=== PATIENT | male | born 1940 | race Caucasian/White ===

== ENCOUNTER 2019-10-03 09:52 | Outpatient (CLI) | payer MEDICARE, SELFPAY ==
[2019-10-03 10:28] LABS: Basophils Percent Auto 0.6 % (0.2-1.2); Eosinophils Absolute Auto 0.1 K/mm3 (0-0.3); Eosinophils Percent Auto 1.8 % (0-4.4); Hematocrit 40.1 % (42.0-52.0); Hemoglobin 13.6 g/dL (14.0-18.0); Immature Granulocyte Absolute 0.02 K/mm3 (0.00-0.031); Immature Granulocyte Percent A 0.3 % (0-0.5); Lymphocytes Absolute Auto 1.61 K/mm3 (0.9-3.2); Lymphocytes Percent Auto 26.1 % (18.3-44.2); Mean Corpuscular HGB Conc 33.9 g/dl (32-36); Mean Corpuscular Hemoglobin 31.3 pg (26-34); Mean Corpuscular Volume 92.2 fl (80-100); Mean Platelet Volume 8.8 fl (7.4-10.4); Monocytes Absolute Auto 0.6 K/mm3 (0.1-0.6); Monocytes Percent Auto 10.1 % (2.6-8.5); Neutrophils Absolute Auto 3.8 K/mm3 (1.3-6.7); Neutrophils Percent Auto 61.1 % (45.5-73.1); Platelet Count Result 248 k/mm3 (150-375); Red Blood Count 4.35 M/mm3 (4.6-6.20); Red Cell Distribution Width 13.2 % (11.5-14.5); White Blood Count 6.2 K/mm3 (4.5-10.0)
[2019-10-03 10:35] LABS: Hemoglobin A1C 5.7 % (<5.7)
[2019-10-03 10:42] LABS: Alanine Aminotransferase 20 U/L (4-50); Albumin Level 4.4 g/dL (3.5-5.1); Alkaline Phosphatase 68 U/L (38-126); Aspartate Amino Transferase 27 U/L (17-59); Bilirubin,Total 0.9 mg/dL (0.2-1.3); Blood Urea Nitrogen 14 mg/dL (9-20); Calcium 9.3 mg/dL (8.4-10.2); Carbon Dioxide 31 mmol/L (22-30); Chloride 100 mmol/L (98-107); Cholesterol 136 mg/dL (0-200); Estimated Glomerular Filt Rate > 60; Glucose 99 mg/dL (75-110); HDL Direct 49 mg/dL; Potassium 4.4 mmol/L (3.4-5.0); Sodium 136 mmol/L (137-145); Triglycerides 47 mg/dL (<150)
[2019-10-03 10:53] LABS: LDL Cholesterol Direct 62 mg/dL
[2019-10-08 09:44] LABS: Homocysteine 12.6 umol/L (<11.4)
== END 2019-10-03 09:53 | disposition home or self-care (01) ==
PROVIDERS: PCP Internal Medicine; Visit Provider Internal Medicine
DX: E11.9 Type 2 diabetes mellitus without complications (principal); I10 Essential (primary) hypertension; E78.2 Mixed hyperlipidemia; R79.89 Other specified abnormal findings of blood chemistry
CPT/HCPCS: 36415; 80048; 80061; 80076; 83036; 83090; 85025

== ENCOUNTER 2019-10-18 11:04 | Outpatient (CLI) | payer MEDICARE, SELFPAY ==
--- NOTE | ~2019-10-18 | XR_ITS ---
XR sinus min 3V DATE: 10/18/2019 11:32 INDICATION: Paranasal sinus disorder TECHNIQUE: 5 views COMPARISON: None FINDINGS: The nasal turbinates appear relatively prominent in size, especially on the right. Leftward bowing of the upper nasal septum. There is cloudiness of the right maxillary sinus with evidence of mild to moderate mucoperiosteal thi ckening. Left maxillary sinus, ethmoid air cells, frontal and sphenoid sinuses appear normally develo ped and aerated. The left mastoid air cells appear well-developed and aerated. There is lesser development of the righ t mastoid air cells. IMPRESSION: Right maxillary mucoperiosteal thickening, cloudiness Reviewed, dictated and finalized at location A.
== END 2019-10-18 11:05 | disposition home or self-care (01) ==
LOC: ANHIMG 11:13
PROVIDERS: PCP Internal Medicine; Visit Provider Internal Medicine
DX: J34.9 Unspecified disorder of nose and nasal sinuses (principal)
CPT/HCPCS: 70220

== ENCOUNTER 2019-11-26 11:52 | Outpatient (CLI) | payer MEDICARE, SELFPAY ==
[2019-11-26 12:25] LABS: Basophils Percent Auto 0.6 % (0.2-1.2); Eosinophils Absolute Auto 0.1 K/mm3 (0-0.3); Eosinophils Percent Auto 2.1 % (0-4.4); Hemoglobin 12.5 g/dL (14.0-18.0); Immature Granulocyte Absolute 0.01 K/mm3 (0.00-0.031); Immature Granulocyte Percent A 0.2 % (0-0.5); Lymphocytes Absolute Auto 1.38 K/mm3 (0.9-3.2); Lymphocytes Percent Auto 21.8 % (18.3-44.2); Mean Corpuscular HGB Conc 33.8 g/dl (32-36); Mean Corpuscular Hemoglobin 31.4 pg (26-34); Mean Platelet Volume 8.9 fl (7.4-10.4); Monocytes Absolute Auto 1.4 K/mm3 (0.1-0.6); Monocytes Percent Auto 22.8 % (2.6-8.5); Neutrophils Absolute Auto 3.3 K/mm3 (1.3-6.7); Neutrophils Percent Auto 52.5 % (45.5-73.1); Platelet Count Result 207 k/mm3 (150-375); Red Blood Count 3.98 M/mm3 (4.6-6.20); Red Cell Distribution Width 13.4 % (11.5-14.5); White Blood Count 6.3 K/mm3 (4.5-10.0)
[2019-11-26 12:39] LABS: Blood Urea Nitrogen 6 mg/dL (9-20); Carbon Dioxide 27 mmol/L (22-30); Chloride 97 mmol/L (98-107); Estimated Glomerular Filt Rate > 60; Glucose 105 mg/dL (75-110); Potassium 4.3 mmol/L (3.4-5.0); Sodium 130 mmol/L (137-145)
== END 2019-11-26 11:53 | disposition home or self-care (01) ==
PROVIDERS: PCP Internal Medicine; Visit Provider Internal Medicine
DX: R19.7 Diarrhea, unspecified (principal); I10 Essential (primary) hypertension
CPT/HCPCS: 36415; 80048; 85025; 87045; 87046; 87177; 87209; 87324; 87427; 89055

== ENCOUNTER 2020-01-16 09:44 | Outpatient (CLI) | payer MEDICARE, SELFPAY ==
[2020-01-16 11:04] LABS: Anion Gap 6 mmol/L (8-16); Blood Urea Nitrogen 14 mg/dL (9-20); Calcium 9.2 mg/dL (8.4-10.2); Carbon Dioxide 29 mmol/L (22-30); Chloride 101 mmol/L (98-107); Cholesterol 162 mg/dL (0-200); Estimated Glomerular Filt Rate > 60; Glucose 105 mg/dL (75-110); HDL Direct 53 mg/dL; Potassium 4.7 mmol/L (3.4-5.0); Sodium 136 mmol/L (137-145); Triglycerides 55 mg/dL (<150)
[2020-01-16 11:11] LABS: Hemoglobin A1C 5.2 % (<5.7)
[2020-01-16 11:15] LABS: LDL Cholesterol Direct 78 mg/dL
== END 2020-01-16 09:45 | disposition home or self-care (01) ==
PROVIDERS: PCP Internal Medicine; Visit Provider Internal Medicine
DX: E11.9 Type 2 diabetes mellitus without complications (principal); I10 Essential (primary) hypertension; E78.2 Mixed hyperlipidemia; Z79.899 Other long term (current) drug therapy
CPT/HCPCS: 36415; 80048; 80061; 83036; 84443

== ENCOUNTER 2020-07-10 08:27 | Outpatient (CLI) | payer MEDICARE, SELFPAY ==
[2020-07-10 08:45] LABS: Basophils Percent Auto 0.7 % (0.2-1.2); Eosinophils Absolute Auto 0.1 K/mm3 (0-0.3); Eosinophils Percent Auto 1.9 % (0-4.4); Hemoglobin 13.5 g/dL (14.0-18.0); Immature Granulocyte Absolute 0.03 K/mm3 (0.00-0.031); Immature Granulocyte Percent A 0.5 % (0-0.5); Lymphocytes Absolute Auto 1.34 K/mm3 (0.9-3.2); Lymphocytes Percent Auto 23.4 % (18.3-44.2); Mean Corpuscular HGB Conc 33.8 g/dl (32-36); Mean Corpuscular Hemoglobin 32.1 pg (26-34); Mean Corpuscular Volume 95.2 fl (80-100); Mean Platelet Volume 8.9 fl (7.4-10.4); Monocytes Absolute Auto 0.6 K/mm3 (0.1-0.6); Monocytes Percent Auto 9.6 % (2.6-8.5); Neutrophils Absolute Auto 3.7 K/mm3 (1.3-6.7); Neutrophils Percent Auto 63.9 % (45.5-73.1); Platelet Count Result 193 k/mm3 (150-375); Red Cell Distribution Width 13.2 % (11.5-14.5); White Blood Count 5.7 K/mm3 (4.5-10.0)
[2020-07-10 09:02] LABS: Alanine Aminotransferase 23 U/L (4-50); Alkaline Phosphatase 52 U/L (38-126); Anion Gap 1 mmol/L (8-16); Aspartate Amino Transferase 27 U/L (17-59); Bilirubin,Total 0.9 mg/dL (0.2-1.3); Blood Urea Nitrogen 16 mg/dL (9-20); Calcium 8.9 mg/dL (8.4-10.2); Carbon Dioxide 34 mmol/L (22-30); Chloride 104 mmol/L (98-107); Cholesterol 128 mg/dL (0-200); Estimated Glomerular Filt Rate > 60; Glucose 106 mg/dL (75-110); HDL Direct 51 mg/dL; Potassium 4.1 mmol/L (3.4-5.0); Sodium 139 mmol/L (137-145); Triglycerides 53 mg/dL (<150)
[2020-07-10 09:04] LABS: Hemoglobin A1C 5.3 % (<5.7)
[2020-07-10 09:17] LABS: LDL Cholesterol Direct 55 mg/dL
[2020-07-10 09:48] LABS: Free T4 Free Thyroxine 0.98 ng/mL (0.78-2.19)
== END 2020-07-10 08:28 | disposition home or self-care (01) ==
PROVIDERS: PCP Internal Medicine; Visit Provider Internal Medicine
DX: E11.9 Type 2 diabetes mellitus without complications (principal); Z79.899 Other long term (current) drug therapy
CPT/HCPCS: 36415; 80053; 80061; 83036; 84439; 84443; 85025

== ENCOUNTER 2020-07-16 17:02 | Outpatient (CLI) | payer MEDICARE, SELFPAY | END 2020-07-16 17:03 | disposition home or self-care (01) | LOC: ANHCOVIDVC 17:02 | PROVIDERS: PCP Internal Medicine | DX: Z23 Encounter for immunization (principal) | CPT/HCPCS: 0001A; 91300 ==

== ENCOUNTER 2020-08-06 16:51 | Outpatient (CLI) | payer MEDICARE, SELFPAY | END 2020-08-06 16:52 | disposition home or self-care (01) | LOC: ANHCOVIDVC 16:51 | PROVIDERS: PCP Internal Medicine | DX: Z23 Encounter for immunization (principal) | CPT/HCPCS: 0002A; 91300 ==

== ENCOUNTER 2020-11-24 09:42 | Outpatient (CLI) | payer MEDICARE, SELFPAY ==
[2020-11-24 17:22] LABS: Alanine Aminotransferase 21 U/L (4-50); Albumin Level 4.3 g/dL (3.5-5.1); Alkaline Phosphatase 56 U/L (38-126); Anion Gap 8 mmol/L (8-16); Aspartate Amino Transferase 26 U/L (17-59); Bilirubin,Total 0.9 mg/dL (0.2-1.3); Blood Urea Nitrogen 16 mg/dL (9-20); Calcium 9.1 mg/dL (8.4-10.2); Carbon Dioxide 28 mmol/L (22-30); Chloride 103 mmol/L (98-107); Cholesterol 146 mg/dL (0-200); Estimated Glomerular Filt Rate > 60; Glucose 95 mg/dL (75-110); HDL Direct 58 mg/dL; Potassium 4.4 mmol/L (3.4-5.0); Sodium 139 mmol/L (137-145); Triglycerides 51 mg/dL (<150)
[2020-11-24 17:33] LABS: LDL Cholesterol Direct 63 mg/dL
[2020-11-24 17:37] LABS: Free T4 Free Thyroxine 1.03 ng/mL (0.78-2.19)
[2020-11-24 19:16] LABS: Hemoglobin A1C 5.6 % (<5.7)
== END 2020-11-24 09:43 | disposition home or self-care (01) ==
PROVIDERS: PCP Internal Medicine; Visit Provider Internal Medicine
DX: E78.2 Mixed hyperlipidemia (principal); E11.9 Type 2 diabetes mellitus without complications; Z79.899 Other long term (current) drug therapy; I10 Essential (primary) hypertension
CPT/HCPCS: 36415; 80053; 80061; 83036; 84439; 84443

== ENCOUNTER 2020-12-16 07:36 | Outpatient (CLI) | payer MEDICARE, SELFPAY ==
--- NOTE | ~2020-12-16 | CT_ITS ---
EXAMINATION: CT abdomen w con INDICATION: Abdominal swelling and palpable mass TECHNIQUE: Computed tomographic images of the abdomen were obtained after the administration of 100 c c of Omnipaque 350 intravenous contrast. The dose-length product (DLP) was 344.43 mGy-cm. Automated e xposure control and iterative reconstruction technique were employed. COMPARISON: 10/09/2003 FINDINGS: The lung bases are clear. The heart size is normal. Gynecomastia is noted. The gallbladder is surgically absent. There is mild enlargement of the common bile duct and central intrahepatic duct s which is likely due to post cholecystectomy state. Punctate calcifications in an otherwise normal s pleen likely represent healed granulomatous disease. The liver, pancreas, and adrenal glands are norm al. Cysts of the kidneys measure up to 3.5 cm on the right. There are no pathologically enlarged abdo hiral lymph nodes. A large volume of colonic stool is present. There is a fat-containing umbilical he rnia. The appendix is normal. There is a small ventral hernia of the left lower quadrant containing f at near the area of palpable concern marked with a BB. There is severe lumbar spondylosis. IMPRESSION: 1. Fat-containing hernia of the left lower quadrant abdominal wall corresponding to area of palpable concern. Reviewed, dictated and finalized at location A. IMPRESSION: 1. Fat-containing hernia of the left lower quadrant abdominal wall correspondin g to area of palpable concern.
== END 2020-12-16 07:37 | disposition home or self-care (01) ==
PROVIDERS: PCP Internal Medicine; Visit Provider Internal Medicine
DX: R19.01 Right upper quadrant abdominal swelling, mass and lump (principal); K43.9 Ventral hernia without obstruction or gangrene
CPT/HCPCS: 74160; Q9967

== ENCOUNTER 2021-04-24 08:04 | Outpatient (CLI) | payer MEDICARE, SELFPAY ==
[2021-04-24 08:54] LABS: Basophils Percent Auto 0.7 % (0.2-1.2); Eosinophils Absolute Auto 0.1 K/mm3 (0-0.3); Eosinophils Percent Auto 2.4 % (0-4.4); Hematocrit 38.8 % (42.0-52.0); Hemoglobin 13.2 g/dL (14.0-18.0); Immature Granulocyte Absolute 0.02 K/mm3 (0.00-0.031); Immature Granulocyte Percent A 0.4 % (0-0.5); Lymphocytes Percent Auto 28.3 % (18.3-44.2); Mean Corpuscular Hemoglobin 32.1 pg (26-34); Mean Corpuscular Volume 94.4 fl (80-100); Monocytes Absolute Auto 0.5 K/mm3 (0.1-0.6); Monocytes Percent Auto 11.3 % (2.6-8.5); Neutrophils Absolute Auto 2.6 K/mm3 (1.3-6.7); Neutrophils Percent Auto 56.9 % (45.5-73.1); Platelet Count Result 219 k/mm3 (150-375); Red Blood Count 4.11 M/mm3 (4.6-6.20); Red Cell Distribution Width 13.2 % (11.5-14.5); White Blood Count 4.6 K/mm3 (4.5-10.0)
[2021-04-24 09:10] LABS: Alanine Aminotransferase 24 U/L (4-50); Albumin Level 4.2 g/dL (3.5-5.1); Alkaline Phosphatase 53 U/L (38-126); Anion Gap 7 mmol/L (8-16); Aspartate Amino Transferase 29 U/L (17-59); Bilirubin,Total 0.9 mg/dL (0.2-1.3); Blood Urea Nitrogen 14 mg/dL (9-20); Carbon Dioxide 28 mmol/L (22-30); Chloride 100 mmol/L (98-107); Cholesterol 133 mg/dL (0-200); Estimated Glomerular Filt Rate > 60; Glucose 105 mg/dL (65-110); HDL Direct 51 mg/dL; Potassium 4.1 mmol/L (3.4-5.0); Sodium 135 mmol/L (137-145); Triglycerides 45 mg/dL (<150)
[2021-04-24 09:22] LABS: LDL Cholesterol Direct 57 mg/dL
[2021-04-24 09:37] LABS: Creatinine Urine 82.8 mg/dL
[2021-04-24 09:37] LABS: Hemoglobin A1C 5.4 % (<5.7)
[2021-04-24 10:18] LABS: MALB Creatinine Ratio < 7.2 mg/g (0-30); Microalbumin Urine Random < 6.0 mg/L (0-16.7)
[2021-04-24 10:39] LABS: Vitamin D 25 Hydroxy 57.1 ng/mL
== END 2021-04-24 08:05 | disposition home or self-care (01) ==
LOC: ANHLAB 08:07
PROVIDERS: PCP Internal Medicine; Visit Provider Internal Medicine
DX: I10 Essential (primary) hypertension (principal); E11.9 Type 2 diabetes mellitus without complications; E78.2 Mixed hyperlipidemia; E55.9 Vitamin D deficiency, unspecified
CPT/HCPCS: 36415; 80053; 80061; 82043; 82306; 83036; 85025

== ENCOUNTER 2021-05-06 15:38 | Outpatient (CLI) | payer MEDICARE, SELFPAY ==
--- NOTE | ~2021-05-06 | XR_ITS ---
EXAMINATION: XR chest 2V 05/06/2021 16:00 INDICATION: Dyspnea. PROCEDURE: 2 view chest COMPARISON: 07/02/2017 FINDINGS: The lungs are clear. There are calcified granulomas in the right midlung. The cardiomediast inal silhouette is within normal limits. There are no pleural effusions. There is no pneumothorax s uspected. IMPRESSION: 1: NO ACUTE CARDIOPULMONARY DISEASE. Reviewed, dictated and finalized at location A. N RESOURCES LEADER
== END 2021-05-06 15:39 | disposition home or self-care (01) ==
LOC: ANHIMG 15:45
PROVIDERS: PCP Internal Medicine; Visit Provider Internal Medicine
DX: R06.00 Dyspnea, unspecified (principal)
CPT/HCPCS: 71046

== ENCOUNTER 2021-05-25 08:21 | Outpatient (CLI) | payer MEDICARE, SELFPAY ==
--- NOTE | ~2021-05-25 | NM_ITS ---
EXAMINATION: NM harvey stress w perfusion DATE: 05/25/2021 10:47 INDICATION: Dyspnea on exertion. TECHNIQUE: Rest images were obtained following intravenous administration of 10.3 mCi Tc99m tetrofosm in (Myoview). The patient was infused intravenously with Lexiscan (regadenoson). Then, 32.2 mCi Tc99m tetrofosmin (Myoview) was administered intravenously, and stress images were obtained. Data was eleanor nstructed into short axis and horizontal and vertical long axis SPECT images. Gated SPECT images were also obtained. COMPARISON: CT abdomen/08/03 FINDINGS: There is no definite reversible or fixed perfusion abnormality to suggest ischemia or infar ction. There is no segmental wall motion abnormality. Left ventricular ejection fraction measures > 70%. IMPRESSION: 1. No definite ischemia or infarct. 2. Normal left ventricular ejection fraction measuring >70%. Reviewed, dictated and finalized at location B. PRESSROOM WORKER
--- NOTE | 2021-05-25 08:50 | EST_ITS ---
Patient Info Name: Alverto Vallecillo Age: 81 years : 1940 Gender: Male Ht: 68 in Wt: 178 lbs BSA: 1.98 m2 HR: 63 bpm BP: 166 / 88 mmHg Heart Rhythm: Sinus Rhythm Exam Date: 05/25/2021 9:46 AM Exam Location: [facility] Stress Patient Status: Outpatient Admit Date: 05/25/2021 Staff Ordering Physician: Milton Garnica MD Attending Provider: Milton Garnica MD Exercise Technologist: Joan Zee CT Exercise Physician: Adama Garcia DO Exam Type: CA stress harvey w NM Study Info Indications R06.00 - Dyspnea, unspecified A regadenoson stress test was performed. Summary 1. 1. Negative lexiscan stress test for ischemic ST changes by ECG criteria. 2. 2. Baseline hypertension. 3. 3. Nuclear scan to follow and will be reported separately. Please correlate with it. 4. 4. Patient informed of the above results. Protocol: Lexiscan Stress ECG Details Stage: REST Duration (min): 1 min : 56 sec HR (bpm): 61 SBP (mmHg): 166 DBP (mmHg): 88 Stage: REST Duration (min): 7 min : 33 sec HR (bpm): 69 SBP (mmHg): 166 DBP (mmHg): 88 Stage: STAGE 1 Duration (min): 1 min : 0 sec HR (bpm): 75 SBP (mmHg): 204 DBP (mmHg): 85 Stage: RECOVERY Duration (min): 1 min : 0 sec HR (bpm): 89 SBP (mmHg): 204 DBP (mmHg): 85 Stage: RECOVERY Duration (min): 2 min : 0 sec HR (bpm): 87 SBP (mmHg): 204 DBP (mmHg): 85 Stage: RECOVERY Duration (min): 2 min : 41 sec HR (bpm): 84 SBP (mmHg): 176 DBP (mmHg): 80 Rest HR: 69 bpm Peak HR: 90 bpm Rest Sys BP: 166 mmHg Peak Sys BP: 204 mmHg Max Pred HR: 137 bpm % Max Pred HR: 66 % Target HR: 116 bpm Max RPP: 18,360 bpm*mmHg Termination Reason: Completed protocol Cardiac Symptoms: None Total Time: 1 min : 0 sec Rest Hicks BP: 88 mmHg Peak Hicks BP: 85 mmHg Total Dose: 0.4 mg Resting ECG Sinus rhythm. Stress ECG No ST changes. Arrhythmias None. Report Signatures
== END 2021-05-25 08:22 | disposition home or self-care (01) ==
PROVIDERS: PCP Internal Medicine; Visit Provider Internal Medicine
DX: R06.00 Dyspnea, unspecified (principal)
CPT/HCPCS: 78452; 93017; A9502; J2785

== ENCOUNTER 2021-09-03 09:14 | Outpatient (CLI) | payer MEDICARE, SELFPAY ==
[2021-09-03 13:09] LABS: Basophils Percent Auto 0.6 % (0.2-1.2); Eosinophils Absolute Auto 0.1 K/mm3 (0-0.3); Eosinophils Percent Auto 1.7 % (0-4.4); Hematocrit 40.6 % (42.0-52.0); Hemoglobin 13.4 g/dL (14.0-18.0); Immature Granulocyte Absolute 0.01 K/mm3 (0.00-0.031); Immature Granulocyte Percent A 0.2 % (0-0.5); Lymphocytes Absolute Auto 1.19 K/mm3 (0.9-3.2); Lymphocytes Percent Auto 25.4 % (18.3-44.2); Mean Corpuscular Volume 96.9 fl (80-100); Mean Platelet Volume 9.5 fl (7.4-10.4); Monocytes Absolute Auto 0.5 K/mm3 (0.1-0.6); Monocytes Percent Auto 11.5 % (2.6-8.5); Neutrophils Absolute Auto 2.8 K/mm3 (1.3-6.7); Neutrophils Percent Auto 60.6 % (45.5-73.1); Platelet Count Result 214 k/mm3 (150-375); Red Blood Count 4.19 M/mm3 (4.6-6.20); Red Cell Distribution Width 13.3 % (11.5-14.5); White Blood Count 4.7 K/mm3 (4.5-10.0)
[2021-09-03 13:30] LABS: Hemoglobin A1C 5.5 % (<5.7)
[2021-09-03 13:32] LABS: LDL Cholesterol Direct 52 mg/dL
[2021-09-03 13:33] LABS: Alanine Aminotransferase 19 U/L (4-50); Albumin Level 4.3 g/dL (3.5-5.1); Alkaline Phosphatase 56 U/L (38-126); Anion Gap 5 mmol/L (8-16); Aspartate Amino Transferase 66 U/L (17-59); Bilirubin,Total 0.9 mg/dL (0.2-1.3); Blood Urea Nitrogen 17 mg/dL (9-20); Calcium 8.7 mg/dL (8.4-10.2); Carbon Dioxide 28 mmol/L (22-30); Chloride 102 mmol/L (98-107); Cholesterol 141 mg/dL (0-200); Estimated Glomerular Filt Rate > 60; Glucose 103 mg/dL (65-110); HDL Direct 48 mg/dL; Potassium 4.2 mmol/L (3.4-5.0); Sodium 135 mmol/L (137-145); Triglycerides 51 mg/dL (<150)
[2021-09-03 13:40] LABS: Free T4 Free Thyroxine 1.11 ng/mL (0.78-2.19)
[2021-09-03 14:30] LABS: Folic Acid > 20.0 ng/mL (2.76->20)
== END 2021-09-03 09:15 | disposition home or self-care (01) ==
LOC: ANHWCLAB 09:18
PROVIDERS: PCP Internal Medicine; Visit Provider Internal Medicine
DX: Z51.81 Encounter for therapeutic drug level monitoring (principal); Z79.899 Other long term (current) drug therapy; E11.9 Type 2 diabetes mellitus without complications; E78.2 Mixed hyperlipidemia; R79.89 Other specified abnormal findings of blood chemistry; I10 Essential (primary) hypertension; Z13.29 Encounter for screening for other suspected endocrine disorder
CPT/HCPCS: 36415; 80053; 80061; 82607; 82746; 83036; 84439; 84443; 85025

== ENCOUNTER 2022-01-27 11:32 | Outpatient (CLI) | payer MEDICARE, SELFPAY ==
[2022-01-27 12:14] LABS: Alanine Aminotransferase 21 U/L (6-50); Albumin Level 4.1 g/dL (3.5-5.1); Alkaline Phosphatase 59 U/L (38-126); Anion Gap 10 mmol/L (8-16); Aspartate Amino Transferase 27 U/L (17-59); Blood Urea Nitrogen 16 mg/dL (9-20); Calcium 9.2 mg/dL (8.4-10.2); Carbon Dioxide 27 mmol/L (22-30); Chloride 100 mmol/L (98-107); Cholesterol 140 mg/dL (0-200); Estimated Glomerular Filt Rate > 60; Glucose 98 mg/dL (65-110); HDL Direct 50 mg/dL; Potassium 4.1 mmol/L (3.4-5.0); Sodium 137 mmol/L (137-145); Triglycerides 52 mg/dL (<150)
[2022-01-27 12:24] LABS: Hemoglobin A1C 5.4 % (<5.7); LDL Cholesterol Direct 59 mg/dL
== END 2022-01-27 11:33 | disposition home or self-care (01) ==
LOC: ANHLAB 11:32
PROVIDERS: PCP Internal Medicine; Visit Provider Internal Medicine
DX: Z51.81 Encounter for therapeutic drug level monitoring (principal); Z79.899 Other long term (current) drug therapy; I10 Essential (primary) hypertension; E11.9 Type 2 diabetes mellitus without complications; E78.2 Mixed hyperlipidemia
CPT/HCPCS: 36415; 80053; 80061; 83036; 84439; 84443

== ENCOUNTER 2022-06-01 09:23 | Outpatient (CLI) | payer MEDICARE, SELFPAY ==
[2022-06-01 10:09] LABS: Basophils Percent Auto 0.7 % (0.2-1.2); Eosinophils Absolute Auto 0.1 K/mm3 (0-0.3); Eosinophils Percent Auto 2.1 % (0-4.4); Hematocrit 38.1 % (42.0-52.0); Hemoglobin 12.8 g/dL (14.0-18.0); Immature Granulocyte Absolute 0.02 K/mm3 (0.00-0.031); Immature Granulocyte Percent A 0.3 % (0-0.5); Lymphocytes Absolute Auto 1.48 K/mm3 (0.9-3.2); Lymphocytes Percent Auto 25.6 % (18.3-44.2); Mean Corpuscular HGB Conc 33.6 g/dl (32-36); Mean Corpuscular Hemoglobin 32.2 pg (26-34); Mean Corpuscular Volume 95.7 fl (80-100); Mean Platelet Volume 9.1 fl (7.4-10.4); Monocytes Absolute Auto 0.6 K/mm3 (0.1-0.6); Monocytes Percent Auto 10.4 % (2.6-8.5); Neutrophils Absolute Auto 3.5 K/mm3 (1.3-6.7); Neutrophils Percent Auto 60.9 % (45.5-73.1); Platelet Count Result 204 k/mm3 (150-375); Red Blood Count 3.98 M/mm3 (4.6-6.20); Red Cell Distribution Width 13.5 % (11.5-14.5); White Blood Count 5.8 K/mm3 (4.5-10.0)
[2022-06-01 11:03] LABS: Alanine Aminotransferase 19 U/L (6-50); Albumin Level 4.1 g/dL (3.5-5.1); Alkaline Phosphatase 55 U/L (38-126); Anion Gap 4 mmol/L (8-16); Aspartate Amino Transferase 25 U/L (17-59); Bilirubin,Total 0.9 mg/dL (0.2-1.3); Blood Urea Nitrogen 16 mg/dL (9-20); Calcium 8.6 mg/dL (8.4-10.2); Carbon Dioxide 32 mmol/L (22-30); Chloride 104 mmol/L (98-107); Cholesterol 135 mg/dL (0-200); Estimated Glomerular Filt Rate > 60; Glucose 98 mg/dL (65-110); HDL Direct 49 mg/dL; Hemoglobin A1C 5.5 % (<5.7); Potassium 4.1 mmol/L (3.4-5.0); Sodium 140 mmol/L (137-145); Triglycerides 51 mg/dL (<150)
[2022-06-01 11:05] LABS: LDL Cholesterol Direct 56 mg/dL
[2022-06-01 12:06] LABS: Free T4 Free Thyroxine 0.97 ng/mL (0.78-2.19)
[2022-06-01 12:11] LABS: Folic Acid > 20.0 ng/mL (2.76->20)
== END 2022-06-01 09:24 | disposition home or self-care (01) ==
PROVIDERS: PCP Internal Medicine; Visit Provider Internal Medicine
DX: E53.8 Deficiency of other specified B group vitamins (principal); I10 Essential (primary) hypertension; E78.2 Mixed hyperlipidemia; E11.9 Type 2 diabetes mellitus without complications; Z79.899 Other long term (current) drug therapy; Z13.29 Encounter for screening for other suspected endocrine disorder
CPT/HCPCS: 36415; 80053; 80061; 82607; 82746; 83036; 84439; 85025

== ENCOUNTER 2022-10-28 08:55 | Outpatient (CLI) | payer MEDICARE, SELFPAY ==
[2022-10-28 09:19] LABS: Basophils Percent Auto 0.6 % (0.2-1.2); Eosinophils Absolute Auto 0.1 K/mm3 (0-0.3); Eosinophils Percent Auto 1.5 % (0-4.4); Hematocrit 37.6 % (42.0-52.0); Hemoglobin 12.4 g/dL (14.0-18.0); Immature Granulocyte Absolute 0.02 K/mm3 (0.00-0.031); Immature Granulocyte Percent A 0.3 % (0-0.5); Lymphocytes Absolute Auto 1.48 K/mm3 (0.9-3.2); Mean Corpuscular Hemoglobin 31.5 pg (26-34); Mean Corpuscular Volume 95.4 fl (80-100); Mean Platelet Volume 8.6 fl (7.4-10.4); Monocytes Absolute Auto 0.6 K/mm3 (0.1-0.6); Monocytes Percent Auto 9.4 % (2.6-8.5); Neutrophils Percent Auto 64.2 % (45.5-73.1); Platelet Count Result 201 k/mm3 (150-375); Red Blood Count 3.94 M/mm3 (4.6-6.20); Red Cell Distribution Width 13.7 % (11.5-14.5); White Blood Count 6.2 K/mm3 (4.5-10.0)
[2022-10-28 09:35] LABS: Alanine Aminotransferase 21 U/L (6-50); Albumin Level 4.1 g/dL (3.5-5.1); Alkaline Phosphatase 49 U/L (38-126); Anion Gap 5 mmol/L (8-16); Aspartate Amino Transferase 28 U/L (17-59); Bilirubin,Total 0.9 mg/dL (0.2-1.3); Blood Urea Nitrogen 16 mg/dL (9-20); Calcium 8.9 mg/dL (8.4-10.2); Carbon Dioxide 31 mmol/L (22-30); Chloride 102 mmol/L (98-107); Cholesterol 134 mg/dL (0-200); Estimated Glomerular Filt Rate > 60; Glucose 95 mg/dL (65-110); HDL Direct 58 mg/dL; Sodium 138 mmol/L (137-145); Triglycerides 40 mg/dL (<150)
[2022-10-28 09:46] LABS: LDL Cholesterol Direct 56 mg/dL
[2022-10-28 09:54] LABS: Hemoglobin A1C 5.4 % (<5.7)
[2022-10-28 10:35] LABS: Free T4 Free Thyroxine 1.14 ng/mL (0.78-2.19)
== END 2022-10-28 08:56 | disposition home or self-care (01) ==
LOC: ANHLAB 08:57
PROVIDERS: PCP Internal Medicine; Visit Provider Internal Medicine
DX: I10 Essential (primary) hypertension (principal); E11.9 Type 2 diabetes mellitus without complications; E78.5 Hyperlipidemia, unspecified; Z13.29 Encounter for screening for other suspected endocrine disorder; Z79.899 Other long term (current) drug therapy
CPT/HCPCS: 36415; 80053; 80061; 83036; 84439; 84443; 85025

== ENCOUNTER 2022-11-05 10:03 | Outpatient (CLI) | payer MEDICARE, SELFPAY ==
[2022-11-05 12:17] LABS: Folic Acid > 20.0 ng/mL (2.76->20)
[2022-11-05 14:25] LABS: Iron 99 ug/dL (49-181)
[2022-11-05 14:38] LABS: Percent Iron Saturation 32 % (20-50)
== END 2022-11-05 10:04 | disposition home or self-care (01) ==
LOC: ANHLAB 10:07
PROVIDERS: PCP Internal Medicine; Visit Provider Internal Medicine
DX: Z13.29 Encounter for screening for other suspected endocrine disorder (principal); Z79.899 Other long term (current) drug therapy; E53.8 Deficiency of other specified B group vitamins; R71.0 Precipitous drop in hematocrit
CPT/HCPCS: 36415; 82607; 82728; 82746; 83540; 83550; 84443

== ENCOUNTER 2023-01-27 00:55 | Day surgery (SDC) | payer MEDICARE, SELFPAY ==
[2023-01-12 14:43] VITALS: BMI 26.8
--- NOTE | 2023-01-26 17:04 | PM.HPGS ---
History of Present Illness History of Present Illness Consent: Risks, benefits, and alternatives have been discussed and questions answered. Patient agrees to proceed with procedure. Chief complaint: Other fecal abnormalities Narrative: Alverto Vallecillo is a 82 year old male here for investigation of an abnormal Cologuard test. He also was found have a trace of blood in his stools. Review of Systems Review of Systems: All systems reviewed & are unremarkable except as noted in HPI and below PMFSH Past Medical History Medical History Abdominal mass Abnormal finding of blood chemistry, unspecified B12 deficiency Benign essential hypertension Bilateral hearing loss BMI 26.0-26.9,adult BMI 27.0-27.9,adult BMI 28.0-28.9,adult BPPV (benign paroxysmal positional vertigo) Congestion of right ear DM type 2 (diabetes mellitus, type 2) ANDERSON (dyspnea on exertion) Elevated homocysteine Elevated LFTs Encounter for Medicare annual wellness exam Encounter for routine adult health examination with abnormal findings Encounter for routine adult health examination without abnormal findings Epigastric pain Exposure to COVID-19 virus Family history of coronary artery disease Flatulence GERD (gastroesophageal reflux disease) Guaiac positive stools Hearing loss Hyperlipidemia Muscle jerks during sleep Need for second dose of COVID-19 vaccine On intermediate designer drug therapy Poison becky dermatitis Postural kyphosis of thoracic region Sinus drainage Skin lesion Vitamin B12 deficiency Surgical History Surgical History H/O ventral hernia repair Ventral hernia repair on right side 1990 History of bilateral inguinal hernia repair Open bilateral inguinal hernia repair with no mesh 1989. History of prostatectomy 2002 Family History Family History Father Cerebrovascular accident Sibling Malignant neoplasm of prostate Family history of diabetes mellitus in first degree relative Family history of lung cancer Mother Family history of diabetes mellitus in first degree relative Other Diabetes mellitus Family history of cardiovascular disease Family history of malignant neoplasm Social History Social History Smoking status: Never smoker Alcohol intake: current Alcohol use details: Rarely Lack of Transportation: No Lack of Food: Never True Current Housing: I Have Housing Concerned About Future Housing: No Difficulty Paying Gas/Electric Bills: No Difficulty Paying for Meds: No Currently Unemployed: No Education: High School Diploma/GED Difficulty w/ Childcare or Family Care: No Living arrangements: with family Occupation/Education: retired Gender identity (if verbalized by the patient): Male Spiritual care concerns: No Meds Home Medications and Allergies Home Medications Medication Instructions Recorded Confirmed Type aspirin 81 mg tablet,delayed 81 mg PO DAILY 06/13/19 01/27/23 History release (Adult Low Dose Aspirin) calcium carbonate 600 mg calcium 600 mg PO BID 06/13/19 01/27/23 History (1,500 mg) tablet folic acid 800 mcg tablet 0.8 mg PO DAILY 10/10/19 01/27/23 History mecobalamin (vitamin B12) 1,000 1,000 mcg PO DAILY 10/10/19 01/27/23 History mcg chewable tablet omega-3 fatty acids 1,000 mg 1,200 mg PO BID 05/06/21 01/27/23 History capsule (Fish Oil Concentrate) blood sugar diagnostic (OneTouch See Rx Instructions .Route 06/15/22 01/27/23 Rx Verio test strips) .COMPLEX Dx: DM Type II/E11.9 #100 strips lancets 30 gauge (OneTouch Delica See Rx Instructions .Route 06/15/22 01/27/23 Rx Plus Lancet) .COMPLEX #100 ea lisinopril 10 mg tablet See Rx Instructions .Route 08/06/22 01/27/23 Rx .COMPLEX #90 tabs pioglitazone 15 mg tablet See Rx Instructions
[2023-01-27 11:18] VITALS: BP 161/97; PULSE 62; RESP 18; TEMP 35.9; O2SAT 100
[2023-01-27] MEDS: LACTATED RINGERS 1,000 ML 150 ML IV CONT (11:27)
--- NOTE | 2023-01-27 11:28 | WPDANESEPPF ---
Anes - Initial Pre Proc Eval Procedure: Operation Date: 01/27/23 12:30 Proposed Procedures p Esophagogastroduodenoscopy - Gera Chapa MD Date/Time: 01/27/23 11:28 Surgeon: Gera Chapa MD Pre Op Diagnosis: Other fecal abnormalities Patient Data Age: 82 Gender: M Height: 1.73 m Weight: 77.1 kg Last Vital Signs Temp 35.9 C L 01/27/23 11:18 Pulse 62 01/27/23 11:18 Resp 18 01/27/23 11:18 BP 161/97 H 01/27/23 11:18 Pulse Ox 100 01/27/23 11:18 O2 Del Method Room Air 01/27/23 11:18 Allergies Allergy/AdvReac Type Severity Reaction Status Date / Time poison becky extract Allergy Unknown Unknown Verified 01/27/23 11:16 morphine AdvReac Mild N/V Verified 01/27/23 11:16 Wasp Allergy Severe Anaphylactic Uncoded 01/27/23 11:16 Shock Home Medications Medication Instructions Recorded Confirmed Type aspirin 81 mg tablet,delayed 81 mg PO DAILY 06/13/19 01/27/23 History release (Adult Low Dose Aspirin) calcium carbonate 600 mg calcium 600 mg PO BID 06/13/19 01/27/23 History (1,500 mg) tablet folic acid 800 mcg tablet 0.8 mg PO DAILY 10/10/19 01/27/23 History mecobalamin (vitamin B12) 1,000 1,000 mcg PO DAILY 10/10/19 01/27/23 History mcg chewable tablet omega-3 fatty acids 1,000 mg 1,200 mg PO BID 05/06/21 01/27/23 History capsule (Fish Oil Concentrate) blood sugar diagnostic (OneTouch See Rx Instructions .Route 06/15/22 01/27/23 Rx Verio test strips) .COMPLEX Dx: DM Type II/E11.9 #100 strips lancets 30 gauge (OneTouch Delica See Rx Instructions .Route 06/15/22 01/27/23 Rx Plus Lancet) .COMPLEX #100 ea lisinopril 10 mg tablet See Rx Instructions .Route 08/06/22 01/27/23 Rx .COMPLEX #90 tabs pioglitazone 15 mg tablet See Rx Instructions .Route 08/06/22 01/27/23 Rx .COMPLEX #90 tabs rosuvastatin 10 mg tablet See Rx Instructions .Route 09/16/22 01/27/23 Rx .COMPLEX #90 tabs Patient hx anesthesia problems: none Family hx anesthesia problems: none Results Review: All pre-operative results and documents have been reviewed as part of the pre-operative evaluation. [facility] Past Medical History Medical History Abdominal mass Abnormal finding of blood chemistry, unspecified B12 deficiency Benign essential hypertension Bilateral hearing loss BMI 26.0-26.9,adult BMI 27.0-27.9,adult BMI 28.0-28.9,adult BPPV (benign paroxysmal positional vertigo) Congestion of right ear DM type 2 (diabetes mellitus, type 2) ANDERSON (dyspnea on exertion) Elevated homocysteine Elevated LFTs Encounter for Medicare annual wellness exam Encounter for routine adult health examination with abnormal findings Encounter for routine adult health examination without abnormal findings Epigastric pain Exposure to COVID-19 virus Family history of coronary artery disease Flatulence GERD (gastroesophageal reflux disease) Guaiac positive stools Hearing loss Hyperlipidemia Muscle jerks during sleep Need for second dose of COVID-19 vaccine On halfway drug therapy Poison becky dermatitis Postural kyphosis of thoracic region Sinus drainage Skin lesion Vitamin B12 deficiency Surgical History Surgical History H/O ventral hernia repair Ventral hernia repair on right side 1990 History of bilateral inguinal hernia repair Open bilateral inguinal hernia repair with no mesh 1989. History of prostatectomy 2002 Family History Family History Father Cerebrovascular accident Sibling Malignant neoplasm of prostate Family history of diabetes mellitus in first degree relative Family history of lung cancer Mother Family history of diabetes mellitus in first degree relative Other Diabetes mellitus Family history of cardiovascular disease Family history of malignant neoplasm Social History Social History (Reviewed 01/27/23
[2023-01-27 11:32] LABS: Glucose Point of Care 94 mg/dl (65-105)
[2023-01-27] MEDS: SIMETHICONE ORAL SUSPENSION 20 MG/0.3 ML 30 ML BOTTLE 0.6 ML IRRIGATION (12:11)
[2023-01-27 12:19] VITALS: BP 146/76; PULSE 65; RESP 18; O2SAT 100
[2023-01-27 12:28] VITALS: BP 158/89; PULSE 61; RESP 15; O2SAT 100
[2023-01-27 12:38] VITALS: BP 190/93; PULSE 63; RESP 20; O2SAT 100
== END 2023-01-27 13:00 | disposition home or self-care (01) ==
PROVIDERS: PCP Internal Medicine; Visit Provider Internal Medicine Gastroenterology
PROC: 0DJ08ZZ Inspection of Upper Intestinal Tract, Via Natural or Artificial Opening Endoscopic (ICD-10-PCS; CPT 43235; principal; 2023-01-27 12:30)
DX: K29.70 Gastritis, unspecified, without bleeding (principal); R19.5 Other fecal abnormalities; K21.00 Gastro-esophageal reflux disease with esophagitis, without bleeding; K44.9 Diaphragmatic hernia without obstruction or gangrene; E53.8 Deficiency of other specified B group vitamins; I10 Essential (primary) hypertension; E11.9 Type 2 diabetes mellitus without complications; R06.00 Dyspnea, unspecified; E72.11 Homocystinuria; R74.01 Elevation of levels of liver transaminase levels; K21.9 Gastro-esophageal reflux disease without esophagitis; E78.5 Hyperlipidemia, unspecified; Z79.82 Long term (current) use of aspirin; Z79.84 Long term (current) use of oral hypoglycemic drugs
CPT/HCPCS: 43239; 82948; 87081; J2704; J7120

== ENCOUNTER 2023-02-17 00:37 | Day surgery (SDC) | payer MEDICARE, SELFPAY ==
[2023-02-08 13:37] VITALS: BMI 26.8
--- NOTE | 2023-02-17 11:34 | PM.HPGS ---
History of Present Illness History of Present Illness Consent: Risks, benefits, and alternatives have been discussed and questions answered. Patient agrees to proceed with procedure. Chief complaint: other fecal abnormalities Narrative: Alverto Vallecillo is a 83 year old male here for investigation of an abnormal Cologuard test.? He also was found have a trace of blood in his stools.? Review of Systems Review of Systems: All systems reviewed & are unremarkable except as noted in HPI and below PMFSH Past Medical History Medical History Abdominal mass Abnormal finding of blood chemistry, unspecified B12 deficiency Benign essential hypertension Bilateral hearing loss BMI 26.0-26.9,adult BMI 27.0-27.9,adult BMI 28.0-28.9,adult BPPV (benign paroxysmal positional vertigo) Congestion of right ear DM type 2 (diabetes mellitus, type 2) ANDERSON (dyspnea on exertion) Elevated homocysteine Elevated LFTs Encounter for Medicare annual wellness exam Encounter for routine adult health examination with abnormal findings Encounter for routine adult health examination without abnormal findings Epigastric pain Exposure to COVID-19 virus Family history of coronary artery disease Flatulence GERD (gastroesophageal reflux disease) Guaiac positive stools Hearing loss Hyperlipidemia Muscle jerks during sleep Need for second dose of COVID-19 vaccine On correction drug therapy Poison becky dermatitis Postural kyphosis of thoracic region Sinus drainage Skin lesion Vitamin B12 deficiency Surgical History Surgical History H/O ventral hernia repair Ventral hernia repair on right side 1990 History of bilateral inguinal hernia repair Open bilateral inguinal hernia repair with no mesh 1989. History of prostatectomy 2002 Family History Family History Father Cerebrovascular accident Sibling Malignant neoplasm of prostate Family history of diabetes mellitus in first degree relative Family history of lung cancer Mother Family history of diabetes mellitus in first degree relative Other Diabetes mellitus Family history of cardiovascular disease Family history of malignant neoplasm Social History Social History Smoking status: Never smoker Alcohol intake: never Alcohol use details: Rarely Substance use type: does not use Lack of Transportation: No Lack of Food: Never True Current Housing: I Have Housing Concerned About Future Housing: No Difficulty Paying Gas/Electric Bills: No Difficulty Paying for Meds: No Currently Unemployed: No Education: High School Diploma/GED Difficulty w/ Childcare or Family Care: No Living arrangements: with family Occupation/Education: retired Gender identity (if verbalized by the patient): Male Spiritual care concerns: No Meds Home Medications and Allergies Home Medications Medication Instructions Recorded Confirmed Type aspirin 81 mg tablet,delayed 81 mg PO DAILY 06/13/19 02/17/23 History release (Adult Low Dose Aspirin) calcium carbonate 600 mg calcium 600 mg PO BID 06/13/19 02/17/23 History (1,500 mg) tablet folic acid 800 mcg tablet 0.8 mg PO DAILY 10/10/19 02/17/23 History mecobalamin (vitamin B12) 1,000 1,000 mcg PO DAILY 10/10/19 02/17/23 History mcg chewable tablet omega-3 fatty acids 1,000 mg 1,200 mg PO BID 05/06/21 02/17/23 History capsule (Fish Oil Concentrate) blood sugar diagnostic (OneTouch See Rx Instructions .Route 06/15/22 02/17/23 Rx Verio test strips) .COMPLEX Dx: DM Type II/E11.9 #100 strips lancets 30 gauge (OneTouch Delica See Rx Instructions .Route 06/15/22 02/17/23 Rx Plus Lancet) .COMPLEX #100 ea lisinopril 10 mg tablet See Rx Instructions .Route 08/06/22 02/17/23 Rx .COMPLEX #90 tabs pantoprazole
[2023-02-17 11:38] VITALS: BMI 25.2
[2023-02-17 11:41] VITALS: BP 176/72; PULSE 63; RESP 18; TEMP 36.3; O2SAT 100
[2023-02-17] MEDS: LACTATED RINGERS 1,000 ML 150 ML IV CONT (11:54)
--- NOTE | 2023-02-17 12:21 | WPDANESEPPF ---
Anes - Initial Pre Proc Eval Procedure: Operation Date: 02/17/23 13:00 Proposed Procedures p Colonoscopy - Gera Chapa MD Date/Time: 02/17/23 12:21 Surgeon: Gera Chapa MD Pre Op Diagnosis: other fecal abnormalities Patient Data Age: 83 Gender: M Height: 1.73 m Weight: 75.2 kg Last Vital Signs Temp 97.4 F L 02/17/23 11:41 Pulse 63 02/17/23 11:41 Resp 18 02/17/23 11:41 BP 176/72 H 02/17/23 11:41 Pulse Ox 100 02/17/23 11:41 O2 Del Method Room Air 02/17/23 11:41 Allergies Allergy/AdvReac Type Severity Reaction Status Date / Time poison becky extract Allergy Unknown Unknown Verified 02/17/23 11:37 morphine AdvReac Mild N/V Verified 02/17/23 11:37 Wasp Allergy Severe Anaphylactic Uncoded 02/08/23 13:31 Shock Home Medications Medication Instructions Recorded Confirmed Type aspirin 81 mg tablet,delayed 81 mg PO DAILY 06/13/19 02/17/23 History release (Adult Low Dose Aspirin) calcium carbonate 600 mg calcium 600 mg PO BID 06/13/19 02/17/23 History (1,500 mg) tablet folic acid 800 mcg tablet 0.8 mg PO DAILY 10/10/19 02/17/23 History mecobalamin (vitamin B12) 1,000 1,000 mcg PO DAILY 10/10/19 02/17/23 History mcg chewable tablet omega-3 fatty acids 1,000 mg 1,200 mg PO BID 05/06/21 02/17/23 History capsule (Fish Oil Concentrate) blood sugar diagnostic (OneTouch See Rx Instructions .Route 06/15/22 02/17/23 Rx Verio test strips) .COMPLEX Dx: DM Type II/E11.9 #100 strips lancets 30 gauge (OneTouch Delica See Rx Instructions .Route 06/15/22 02/17/23 Rx Plus Lancet) .COMPLEX #100 ea lisinopril 10 mg tablet See Rx Instructions .Route 08/06/22 02/17/23 Rx .COMPLEX #90 tabs pantoprazole 40 mg tablet,delayed 40 mg PO QAM #30 tabs 01/27/23 02/17/23 Rx release sodium,potassium,mag sulfates 17.5 See Rx Instructions PO .COMPLEX 01/28/23 02/17/23 Rx gram-3.13 gram-1.6 gram oral soln #354 mL (Suprep Bowel Prep Kit) sodium,potassium,mag sulfates 17.5 See Rx Instructions PO .COMPLEX 01/28/23 02/17/23 Rx gram-3.13 gram-1.6 gram oral soln #354 mL (Suprep Bowel Prep Kit) pioglitazone 15 mg tablet (Actos) See Rx Instructions .Route .COMPLEX 02/08/23 02/17/23 History rosuvastatin 10 mg tablet See Rx Instructions .Route 02/14/23 02/17/23 Rx .COMPLEX #90 tabs Patient hx anesthesia problems: none Family hx anesthesia problems: none Results Review: All pre-operative results and documents have been reviewed as part of the pre-operative evaluation. [facility] Past Medical History Medical History Abdominal mass Abnormal finding of blood chemistry, unspecified B12 deficiency Benign essential hypertension Bilateral hearing loss BMI 26.0-26.9,adult BMI 27.0-27.9,adult BMI 28.0-28.9,adult BPPV (benign paroxysmal positional vertigo) Congestion of right ear DM type 2 (diabetes mellitus, type 2) ANDERSON (dyspnea on exertion) Elevated homocysteine Elevated LFTs Encounter for Medicare annual wellness exam Encounter for routine adult health examination with abnormal findings Encounter for routine adult health examination without abnormal findings Epigastric pain Exposure to COVID-19 virus Family history of coronary artery disease Flatulence GERD (gastroesophageal reflux disease) Guaiac positive stools Hearing loss Hyperlipidemia Muscle jerks during sleep Need for second dose of COVID-19 vaccine On fpc drug therapy Poison becky dermatitis Postural kyphosis of thoracic region Sinus drainage Skin lesion Vitamin B12 deficiency Surgical History Surgical History H/O ventral hernia repair Ventral hernia repair on right side 1990 History of bilateral inguinal hernia repair Open bilateral inguinal hernia repair with no mesh 1989. History of prostatectomy 2002 Family History Family History Kinza
[2023-02-17 12:30] LABS: Glucose Point of Care 74 mg/dl (65-105)
[2023-02-17 12:58] VITALS: BP 151/75; PULSE 63; RESP 15; O2SAT 98
[2023-02-17 13:08] VITALS: BP 159/78; PULSE 66; RESP 19; O2SAT 99
[2023-02-17 13:18] VITALS: BP 173/92; PULSE 60; RESP 18; O2SAT 100
--- NOTE | 2023-02-17 13:28 | SUR.PHASEII ---
BP elevated. Dr. Blas made aware. Ok to d/c patient and to inform pt to take bp med once home. Pt stated understanding.
== END 2023-02-17 13:37 | disposition home or self-care (01) ==
PROVIDERS: PCP Internal Medicine; Visit Provider Internal Medicine Gastroenterology
PROC: 0DJD8ZZ Inspection of Lower Intestinal Tract, Via Natural or Artificial Opening Endoscopic (ICD-10-PCS; CPT 45378; principal; 2023-02-17 13:00)
DX: K64.8 Other hemorrhoids (principal); K57.30 Diverticulosis of large intestine without perforation or abscess without bleeding; I10 Essential (primary) hypertension; E11.9 Type 2 diabetes mellitus without complications; E53.8 Deficiency of other specified B group vitamins; K21.9 Gastro-esophageal reflux disease without esophagitis; E78.5 Hyperlipidemia, unspecified; Z79.82 Long term (current) use of aspirin; Z79.84 Long term (current) use of oral hypoglycemic drugs
CPT/HCPCS: 45378; 82948; J2704; J7120

== ENCOUNTER 2023-03-10 09:19 | Outpatient (CLI) | payer MEDICARE, SELFPAY ==
[2023-03-10 12:31] LABS: Alanine Aminotransferase 20 U/L (6-50); Albumin Level 4.2 g/dL (3.5-5.1); Alkaline Phosphatase 50 U/L (38-126); Anion Gap 4 mmol/L (8-16); Aspartate Amino Transferase 23 U/L (17-59); Bilirubin,Total 0.9 mg/dL (0.2-1.3); Blood Urea Nitrogen 13 mg/dL (9-20); Calcium 9.2 mg/dL (8.4-10.2); Carbon Dioxide 32 mmol/L (22-30); Chloride 102 mmol/L (98-107); Cholesterol 134 mg/dL (0-200); Estimated Glomerular Filt Rate > 60; Glucose 102 mg/dL (65-110); HDL Direct 54 mg/dL; Potassium 4.3 mmol/L (3.4-5.0); Sodium 138 mmol/L (137-145); Triglycerides 49 mg/dL (<150)
[2023-03-10 12:42] LABS: Hemoglobin A1C 5.5 % (<5.7)
[2023-03-10 12:48] LABS: LDL Cholesterol Direct 59 mg/dL
== END 2023-03-10 09:20 | disposition home or self-care (01) ==
LOC: ANHLAB 09:23
PROVIDERS: Internal Medicine; PCP Family Medicine; Visit Provider Internal Medicine Hematology & Oncology
DX: E78.5 Hyperlipidemia, unspecified (principal); I10 Essential (primary) hypertension; E11.9 Type 2 diabetes mellitus without complications; R19.5 Other fecal abnormalities; Z79.899 Other long term (current) drug therapy
CPT/HCPCS: 36415; 80053; 80061; 83036

== ENCOUNTER 2023-07-26 14:21 | Outpatient (CLI) | payer MEDICARE, SELFPAY ==
--- NOTE | 2023-07-26 14:53 | ECHO_ITS ---
Patient Info Name: Alverto Vallecillo Age: 83 years : 1940 Gender: Male Ht: 68 in Wt: 178 lbs BSA: 1.98 m2 HR: 64 bpm BP: 159 / 78 mmHg Heart Rhythm: Sinus Rhythm Technical Quality: Good Exam Date: 07/26/2023 1:59 PM Exam Location: Echo Lab Patient Status: Outpatient Admit Date: 07/26/2023 Staff Ordering Physician: Eli Porras MD Foreclosure Paralegal: Myranda Kenny RDCS Attending Provider: Eli Porras MD Referring Physician: Vern WOODSON; Exam Type: CA echo doppler color flow Study Info Indications - murmur Complete two-dimensional, color flow and Doppler transthoracic echocardiogram is performed. Summary 1. Complete two-dimensional, color flow and Doppler transthoracic echocardiogram is performed. 2. Left ventricular chamber dimension is normal. 3. Left ventricular systolic function is normal, estimated at 65-70%. 4. There is mild concentric increased left ventricular wall thickness. 5. The left ventricular diastolic function is grade I diastolic dysfunction. 6. E/e' 13 is mildly elevated. 7. Left atrial chamber dimension is mildly enlarged. 8. There is mild aortic valve sclerosis. 9. There is trace tricuspid valve regurgitation. 10. No pulmonary hypertension, estimated pulmonary arterial systolic pressure is 29 mmHg. Left Ventricle E/e' 13 is mildly elevated. Left ventricular chamber dimension is normal. Left ventricular systolic function is normal, estimated at 65-70%. There is mild concentric increased left ventricular wall thickness. The left ventricular diastolic function is grade I diastolic dysfunction. Right Ventricle Right ventricular systolic function is normal and with normal TAPSE 2.1 cm. Right ventricular chamber dimension is normal. Left Atria Left atrial chamber dimension is mildly enlarged. Right Atria Right atrial chamber dimension is normal. Aortic Valve The aortic valve is trileaflet. There is mild aortic valve sclerosis. There is no aortic valve stenosis. There is no aortic valve regurgitation. Pulmonic Valve There is no pulmonic regurgitation. Mitral Valve There is no mitral valve stenosis. There is no mitral valve regurgitation. Tricuspid Valve There is trace tricuspid valve regurgitation. No pulmonary hypertension, estimated pulmonary arterial systolic pressure is 29 mmHg. Pericardium/Pleural There is no pericardial effusion. Inferior Vena Cava Normal inferior vena cava with >50% collapse upon inspiration consistent with normal right atrial pressure, 5 mmHg. Aorta The aortic root size at the sinus of Valsalva is normal. Left Ventricular Outflow Tract Name Value Normal LVOT 2D LVOT Diameter 2.0 cm LVOT Doppler LVOT Peak Gradient 3 mmHg LVOT Mean Gradient 2 mmHg LVOT VTI 23 cm LVOT VTI/AV VTI Ratio 0.6 LVOT Stroke Volume 73 ml LVOT CO 5.0 l/min LVOT CI 2.5 l/min/m2 Pulmonic Valve Name Value
== END 2023-07-26 14:22 | disposition home or self-care (01) ==
LOC: ANHCARD 14:22
PROVIDERS: PCP Family Medicine; Visit Provider Family Medicine
DX: R93.1 Abnormal findings on diagnostic imaging of heart and coronary circulation (principal); R01.1 Cardiac murmur, unspecified; I35.8 Other nonrheumatic aortic valve disorders; I07.1 Rheumatic tricuspid insufficiency
CPT/HCPCS: 93306

== ENCOUNTER 2023-11-21 09:16 | Outpatient (CLI) | payer MEDICARE, SELFPAY ==
[2023-11-21 09:43] LABS: Basophils Percent Auto 0.5 % (0.2-1.2); Eosinophils Absolute Auto 0.1 K/mm3 (0-0.3); Eosinophils Percent Auto 1.1 % (0-4.4); Hematocrit 34.7 % (42.0-52.0); Hemoglobin 11.7 g/dL (14.0-18.0); Immature Granulocyte Absolute 0.04 K/mm3 (0.00-0.031); Immature Granulocyte Percent A 0.5 % (0-0.5); Lymphocytes Percent Auto 16.3 % (18.3-44.2); Mean Corpuscular HGB Conc 33.7 g/dl (32-36); Mean Corpuscular Hemoglobin 32.2 pg (26-34); Mean Corpuscular Volume 95.6 fl (80-100); Mean Platelet Volume 8.4 fl (7.4-10.4); Monocytes Absolute Auto 0.9 K/mm3 (0.1-0.6); Monocytes Percent Auto 11.2 % (2.6-8.5); Neutrophils Absolute Auto 5.6 K/mm3 (1.3-6.7); Neutrophils Percent Auto 70.4 % (45.5-73.1); Platelet Count Result 183 k/mm3 (150-375); Red Blood Count 3.63 M/mm3 (4.6-6.20); Red Cell Distribution Width 13.8 % (11.5-14.5)
[2023-11-21 10:37] LABS: Alanine Aminotransferase 17 U/L (6-50); Albumin Level 4.1 g/dL (3.5-5.1); Alkaline Phosphatase 56 U/L (38-126); Anion Gap 10 mmol/L (4-12); Aspartate Amino Transferase 24 U/L (17-59); Blood Urea Nitrogen 18 mg/dL (9-20); Calcium 9.1 mg/dL (8.4-10.2); Carbon Dioxide 29 mmol/L (22-30); Chloride 100 mmol/L (98-107); Cholesterol 124 mg/dL (0-200); Estimated Glomerular Filt Rate > 60; Glucose 103 mg/dL (65-110); HDL Direct 53 mg/dL; Sodium 139 mmol/L (137-145); Triglycerides 43 mg/dL (<150)
[2023-11-21 10:38] LABS: Iron 39 ug/dL (49-181)
[2023-11-21 10:48] LABS: LDL Cholesterol Direct 57 mg/dL
[2023-11-21 10:50] LABS: Percent Iron Saturation 14 % (20-50)
[2023-11-21 13:07] LABS: Vitamin D 25 Hydroxy 62.4 ng/mL
== END 2023-11-21 09:17 | disposition home or self-care (01) ==
PROVIDERS: PCP Family Medicine; Visit Provider Internal Medicine Hematology & Oncology
DX: E55.9 Vitamin D deficiency, unspecified (principal); R71.0 Precipitous drop in hematocrit; E78.5 Hyperlipidemia, unspecified; I10 Essential (primary) hypertension; Z79.899 Other long term (current) drug therapy
CPT/HCPCS: 36415; 80053; 80061; 82306; 82728; 83540; 83550; 85025

== ENCOUNTER 2023-12-01 11:05 | Outpatient (CLI) | payer MEDICARE, SELFPAY ==
[2023-12-01 17:06] LABS: Creatinine Urine 42.6 mg/dL
[2023-12-01 17:11] LABS: MALB Creatinine Ratio 15.3 mg/g (0-30); Microalbumin Urine Random 6.5 mg/L (0-16.7)
[2023-12-01 17:17] LABS: Hemoglobin A1C 5.8 % (<5.7)
[2023-12-01 18:07] LABS: Vitamin B12 > 1000.0 pg/mL (239-931)
[2023-12-05 16:08] LABS: Immunoglobulin A 363 mg/dL (70-320); TTG IGA AB <1.0 U/mL
== END 2023-12-01 11:06 | disposition home or self-care (01) ==
LOC: ANHLAB 11:08
PROVIDERS: PCP Family Medicine; Visit Provider Internal Medicine Hematology & Oncology
DX: D50.9 Iron deficiency anemia, unspecified (principal); E11.9 Type 2 diabetes mellitus without complications; E53.8 Deficiency of other specified B group vitamins
CPT/HCPCS: 36415; 82043; 82607; 82784; 83036; 86364

== ENCOUNTER 2023-12-08 09:54 | Outpatient (CLI) | payer MEDICARE, SELFPAY ==
[2023-12-08 10:29] LABS: Basophils Percent Auto 0.7 % (0.2-1.2); Eosinophils Absolute Auto 0.1 K/mm3 (0-0.3); Eosinophils Percent Auto 1.7 % (0-4.4); Hematocrit 35.1 % (42.0-52.0); Hemoglobin 11.9 g/dL (14.0-18.0); Immature Granulocyte Absolute 0.02 K/mm3 (0.00-0.031); Immature Granulocyte Percent A 0.3 % (0-0.5); Lymphocytes Absolute Auto 1.48 K/mm3 (0.9-3.2); Lymphocytes Percent Auto 24.9 % (18.3-44.2); Mean Corpuscular HGB Conc 33.9 g/dl (32-36); Mean Corpuscular Hemoglobin 32.3 pg (26-34); Mean Corpuscular Volume 95.4 fl (80-100); Mean Platelet Volume 8.6 fl (7.4-10.4); Monocytes Absolute Auto 0.7 K/mm3 (0.1-0.6); Monocytes Percent Auto 11.6 % (2.6-8.5); Neutrophils Absolute Auto 3.6 K/mm3 (1.3-6.7); Neutrophils Percent Auto 60.8 % (45.5-73.1); Platelet Count Result 255 k/mm3 (150-375); Red Blood Count 3.68 M/mm3 (4.6-6.20); Red Cell Distribution Width 13.4 % (11.5-14.5)
== END 2023-12-08 09:55 | disposition home or self-care (01) ==
LOC: ANHLAB 09:58
PROVIDERS: PCP Family Medicine; Visit Provider Family Medicine
DX: D64.9 Anemia, unspecified (principal); E53.8 Deficiency of other specified B group vitamins; E11.9 Type 2 diabetes mellitus without complications; D50.9 Iron deficiency anemia, unspecified
CPT/HCPCS: 36415; 85025

== ENCOUNTER 2023-12-20 14:18 | Outpatient (CLI) | payer MEDICARE, SELFPAY ==
[2023-12-20 14:39] LABS: Basophils Absolute Auto 0.1 K/mm3 (0.0-0.1); Basophils Percent Auto 0.8 % (0.2-1.2); Eosinophils Absolute Auto 0.1 K/mm3 (0-0.3); Eosinophils Percent Auto 1.9 % (0-4.4); Hematocrit 36.9 % (42.0-52.0); Hemoglobin 12.4 g/dL (14.0-18.0); Immature Granulocyte Absolute 0.02 K/mm3 (0.00-0.031); Immature Granulocyte Percent A 0.3 % (0-0.5); Lymphocytes Percent Auto 26.7 % (18.3-44.2); Mean Corpuscular HGB Conc 33.6 g/dl (32-36); Mean Corpuscular Hemoglobin 32.5 pg (26-34); Mean Corpuscular Volume 96.6 fl (80-100); Mean Platelet Volume 8.4 fl (7.4-10.4); Monocytes Absolute Auto 0.7 K/mm3 (0.1-0.6); Monocytes Percent Auto 11.5 % (2.6-8.5); Neutrophils Absolute Auto 3.7 K/mm3 (1.3-6.7); Neutrophils Percent Auto 58.8 % (45.5-73.1); Platelet Count Result 192 k/mm3 (150-375); Red Blood Count 3.82 M/mm3 (4.6-6.20); Red Cell Distribution Width 13.6 % (11.5-14.5); White Blood Count 6.4 K/mm3 (4.5-10.0)
[2023-12-20 16:37] LABS: Iron 95 ug/dL (49-181)
[2023-12-20 16:39] LABS: Alanine Aminotransferase 19 U/L (6-50); Albumin Level 4.2 g/dL (3.5-5.1); Alkaline Phosphatase 54 U/L (38-126); Anion Gap 7 mmol/L (4-12); Aspartate Amino Transferase 28 U/L (17-59); Bilirubin,Total 1.1 mg/dL (0.2-1.3); Blood Urea Nitrogen 17 mg/dL (9-20); Calcium 9.2 mg/dL (8.4-10.2); Carbon Dioxide 31 mmol/L (22-30); Chloride 96 mmol/L (98-107); Estimated Glomerular Filt Rate > 60; Glucose 99 mg/dL (65-110); Lactate Dehydrogenase 160 U/L (120-246); Potassium 4.1 mmol/L (3.4-5.0); Sodium 134 mmol/L (137-145)
[2023-12-20 16:49] LABS: Percent Iron Saturation 32 % (20-50)
[2023-12-20 17:57] LABS: Folic Acid > 20.0 ng/mL (2.76->20); Vitamin B12 > 1000.0 pg/mL (239-931)
[2023-12-24 08:54] LABS: Methylmalonic Acid 104 nmol/L (85-423)
[2023-12-27 14:33] LABS: Soluble Transferrin Receptor 0.94 mg/L (0.76-1.76)
== END 2023-12-20 14:19 | disposition home or self-care (01) ==
LOC: ANHLAB 14:21
PROVIDERS: Nurse Practitioner Family; PCP Family Medicine; Visit Provider Internal Medicine Hematology & Oncology
DX: D50.9 Iron deficiency anemia, unspecified (principal)
CPT/HCPCS: 36415; 80053; 82607; 82728; 82746; 83540; 83550; 83615; 83921; 84238; 85025

== ENCOUNTER 2024-04-03 09:31 | Outpatient (CLI) | payer MEDICARE, SELFPAY ==
[2024-04-03 10:00] LABS: Basophils Absolute Auto 0.1 K/mm3 (0.0-0.1); Basophils Percent Auto 0.8 % (0.2-1.2); Eosinophils Absolute Auto 0.1 K/mm3 (0-0.3); Eosinophils Percent Auto 1.3 % (0-4.4); Hematocrit 36.5 % (42.0-52.0); Hemoglobin 12.4 g/dL (14.0-18.0); Immature Granulocyte Absolute 0.02 K/mm3 (0.00-0.031); Immature Granulocyte Percent A 0.3 % (0-0.5); Lymphocytes Absolute Auto 1.35 K/mm3 (0.9-3.2); Lymphocytes Percent Auto 22.2 % (18.3-44.2); Mean Corpuscular Volume 94.3 fl (80-100); Mean Platelet Volume 8.4 fl (7.4-10.4); Monocytes Absolute Auto 0.6 K/mm3 (0.1-0.6); Monocytes Percent Auto 9.7 % (2.6-8.5); Neutrophils Percent Auto 65.7 % (45.5-73.1); Platelet Count Result 211 k/mm3 (150-375); Red Blood Count 3.87 M/mm3 (4.6-6.20); Red Cell Distribution Width 13.7 % (11.5-14.5); White Blood Count 6.1 K/mm3 (4.5-10.0)
[2024-04-03 11:05] LABS: Alanine Aminotransferase 16 U/L (6-50); Albumin Level 4.1 g/dL (3.5-5.1); Alkaline Phosphatase 66 U/L (38-126); Anion Gap 5 mmol/L (4-12); Aspartate Amino Transferase 25 U/L (17-59); Bilirubin,Total 0.8 mg/dL (0.2-1.3); Blood Urea Nitrogen 12 mg/dL (9-20); Calcium 9.2 mg/dL (8.4-10.2); Carbon Dioxide 31 mmol/L (22-30); Chloride 102 mmol/L (98-107); Estimated Glomerular Filt Rate > 60; Glucose 100 mg/dL (65-110); Lactate Dehydrogenase 151 U/L (120-246); Sodium 138 mmol/L (137-145)
[2024-04-03 12:12] LABS: Folic Acid > 20.0 ng/mL (2.76->20)
[2024-04-03 13:37] LABS: Iron 94 ug/dL (49-181)
[2024-04-03 13:51] LABS: Percent Iron Saturation 33 % (20-50)
== END 2024-04-03 09:32 | disposition home or self-care (01) ==
LOC: ANHLAB 09:34
PROVIDERS: PCP Family Medicine; Visit Provider Internal Medicine Hematology & Oncology
DX: D50.9 Iron deficiency anemia, unspecified (principal)
CPT/HCPCS: 36415; 80053; 82607; 82728; 82746; 83540; 83550; 83615; 83921; 84238; 85025

== ENCOUNTER 2024-10-02 09:08 | Outpatient (CLI) | payer MEDICARE, SELFPAY ==
--- OUTSIDE RECORDS SUMMARY | 2024-10-02 09:19 | XMS_ITS | Continuity of Care Document ---
Author Organization [employer] [facility] [place] [address] [place] [address] Re[address] [place] [phone] Phone Care Team Providers Care Captain Of Guards Name Role Phone Vera OD, Vipul Unavailable [...] Diagnoses Date Provider Providers Copied on Encounter [facility], [address] [place] [address] [address], [place], [place], [id number], tel:[phone] [facility] No Information 0 4-201 0 Vera OD Vipul. [address] [place], [place] [address] , [address], [place], [place], [facility], [place]. tel:[phone] Referring Provider: Vipul Elkins, [address] [place], [place] [address], [place], [facility]. tel:[phone] [facility], [address] [place] [address] [address], [place], [place], [id number], [place] tel:[phone] [facility] No Information 0 3-201 0 Vera OD Vipul. [address] [place] [address] , [address], [place], [facility], [place]. tel:[phone] Referring Provider: Vipul Elkins, [address] [place], [place] [address]ate [address], [place], [place], [facility]. tel:[phone] Office/outpat ient Visit, Est [facility], [id number] [place] [address] [address], [place], [place], [id number], [place] tel:[phone] [facility] No Information 3 0-201 0 Krishjosie Talamantesl. [address] [place] [address] [address], [place], [facility], [place]. tel:[phone] [facility], [address] [place] [address] [address], [place], [place], [id number], [place] tel:[phone] [facility] No Information 9-201 0 Krishnasamy Yefri. [address] [place] [address] [address], [place], [facility], [place]. tel:[phone] Referring Provider: Yefri mcqueen, [address] [place], [place] [address], [place], [facility]. tel:[phone] [facility] Eye [facility], [address], [place], [place], [id number], [place] tel:[phone] [facility] No Information Nov-1 2-200 9 Krishnasamy Yefri. [address], [place], [facility], . tel:[phone] Referring Provider: Yefri mcqueen, [address], [place], [facility]. tel:[phone] [facility], [address], [place], [place], [id number], tel:[phone] [facility] No Information Nov-0 9-200 9 Krishnasamy Yefri. [facility] [address], [place], [facility], [place]. tel:[phone] Referring Provider: Yefri mcqueen, [facility] [address], [place], [facility]. tel:[phone] Office/outpat ient Visit, [facility] Eye [facility], [address] [place] [address] [address], [place], [place], [id number], [place] tel:[phone] [facility] No Information Aug-0 5-200 9 Krishnasamy Yefri. [facility], 1928–[address] [address] [facility] [address], [place], [facility], [place]. tel:[phone] Office/outpat ient Visit, [facility] Eye [facility], [address] [place] [address] [address], [place], [place], [id number], [place] tel:[phone] [facility] No Information Mar-0 4-200 9 Krishnasamy Yefri. [address] [facility] [address], [place], [facility], [place]. tel:[phone] Referring Provider: Yefri mcqueen, [address], [place], [address]. tel:[phone] [facility], [address] [place] [address] [address], [place], [place], [id number], tel:[phone] [facility] No Information Nov-0 5-200 8 Krishnasamy Yefri. [facility], [facility] [facility] [address], [place], [facility], [place]. tel:[phone] Referring Provider: Yefri mcqueen, [address] [place], [place] [address], [place], [facility]. tel:[phone] [facility], [address] [place] [address] [address], [place], [place], [id number], tel:[phone] [facility] No Information Nov-0 4-200 8 Krishnasamy Yefri. [address] [place] [address] [address], [place], [facility], [place]. tel:[phone] Referring Provider: Yefri mcqueen, [address] [place], [place] [address]ate [facility] [address], [place], [facility]. tel:[phone] [facility], [address] [place] [address] [address], [place], [place], [id number], tel:[phone] [facility] No Information Aug-1 2-200 8 Nedra Chase. [address] [place], [place] [address], [address], [place], [facility], [place]. tel:[phone] [facility]pat ient [facility], [facility], [address] [place] [address] [address], [place], [place], [id number], [place] tel:[phone] [facility] No Information Costa-3 0-200 8 Krishnasamy Yefri. [address] [place] [address] [address], [place], [facility], [place]. tel:[phone] Office/outpat ient Visit, [facility], [address] [place] [address] [address], [place], [place], [id number], tel:[phone] [facility] No Information Costa-2 0-200 8 Krishnasamy Yefri. [address] [place], [place] [address], [facility], . tel:[phone] [facility], [address] [place] [address] [address], [place], [place], [id number], tel:[phone] [facility] No Information Apr-0 2-200 8 Krishnasamy Yefri. [address] [place], [place] [address], [facility], [place]. tel:[phone] Referring Provider: Yefri mcqueen, [address] [place] [address], [facility]. tel:[phone] [facility], [address] [place] [address] [address], [place], [place], [id number], tel:[phone] [facility] No Information Apr-0 1-200 8 Krishnasamy Yefri. [address] [place], [place] [address], [facility], [place]. tel:[phone] Referring Provider: Yefri mcqueen, [address] [place], [place] [address], [facility]. tel:[phone] [facility], [address] [place] [address] [address], [place], [place], [id number], tel:[phone] [facility] No Information Mar-1 2-200 8 Krishnasamy Yefri. [address] [place], [place] [address], [facility], [place]. tel:[phone] Family History Family Member Type Diagnosis Age At Onset No Information Payers Payer name Insurance type Covered constitution party ID Authoriza tion(s) [place] [id number] [facility] Medicare [facility] CI [id number] Social History Type Description Quantity Date Captured [...]
--- OUTSIDE RECORDS SUMMARY | 2024-10-02 09:19 | XMS_ITS | Clinical Summary ---
Author Organization [facility] Address [address] [place] [address] Care Team Providers Care Metalizing Machine Operator Automatic Name Role Phone Eli Porras MD Primary Care Provider Allergies Active Allergy Reactions Criticality Noted Date Comments Morphine Nausea and Vomiting Low 12/20/2023 Medications OneTouch Verio test strips Strip use 1 strip to check glucose once daily 4 Active FeroSuL 325 mg (65 mg iron) tablet Take 1 Tablet by mouth daily. 4 Active OneTouch Delica Plus Lancet 30 gauge USE 1 LANCET ONCE DAILY 4 Active lisinopriL (PRINIVIL) 10 mg tablet 4 Active pantoprazole (PROTONIX) 40 mg Tablet, Delayed Release (E.C.) 4 Active pioglitazone (ACTOS) 15 mg tablet 4 Active rosuvastatin (CRESTOR) 10 mg tablet 4 Active aspirin (ECOTRIN EC) 81 mg Tablet, Delayed Release (E.C.) Take 81 mg by mouth daily. Active folic acid (FOLVITE) 1 mg tablet Take 1 mg by mouth daily. Active fluticasone propionate (FLONASE) 50 mcg/spray [place], Suspension nasal inhaler Administer 2 Sprays in each nostril daily. 4 Active Active Problems No known active problems Encounters Date Type Department Care Team Description 08/01/2024 External Device Data STL ABSTRACTION Provider, Abstract 07/21/2024 External Device Data STL ABSTRACTION Provider, Abstract 07/20/2024 External Device Data STL ABSTRACTION Provider, Abstract from Last 3 Months Family History Medical History Relation Name Comments Leukemia Niece Relation Name Status Comments Niece Social History Tobacco Use Types Packs/Day Years Used Date Smoking Tobacco: Never Smokeless Tobacco: Never Alcohol Use Standard Drinks/Week Comments Not Currently 0 (1 standard drink = 0.6 oz pur e alcohol) Sex and Gender Information Value Date Recorded Sex Assigned at Male 04/16/2024 4:25 PM IRON P[employer]IC BULLET MAKER Legal Sex Male 11:35 AM CDT Gender Identity Male 04/16/2024 4:25 PM IRON P[employer]LET MAKER Sexual Orientation Straight 04/16/2024 4: 25 PM IRON PLASTIC BULLET MAKER Last Filed Vital Signs Vital Sign Reading Time Taken Comments Blood Pressure 112/61 04/10/2024 3:30 PM IRON P[employer]LET MAKER Pulse 68 04/10/2024 3:30 PM IRON PLASTIC BULLET MAKER Temperature 36.8 C (98.2 F) 04/10/2024 3:30 PM IRON PLASTIC BULLET MAKER Respiratory Rate 15 04/10/2024 3:30 PM IRON PLASTIC BULLET MAKER Oxygen Saturation 96% 04/10/2024 3:30 PM IRON PLASTIC BULLET MAKER Inhaled Oxygen Concentration - - Weight 79.4 kg (175 lb) 04/10/2024 3:30 PM IRON PLASTIC BULLET MAKER Height 172.7 cm (5' 8 ) 12/20/2023 1:30 PM CDT Body Mass Index 26.61 12/20/2023 1:30 PM CDT Plan of Treatment Upcoming Encounters Date Type Department Care Team (Late st Contact Info) Description 10/09/2024 1:00 PM CDT Office Visit [facility] Oncology and Hematology - [place] [address] [facility] [address] [place] [address] Andrew Hirsch MD [address] [facility] [address] [place] [address] Health Maintenance Due Date Last Done Comments DTAP/TDAP/TD VACCINES (1 - Tdap) 1959 Traditional Medicare (ACO) Annual Wellness Visit 02/06 PNEUMOCOCCAL VACCINE 50+ YEARS (1 of 1 - PCV) 02/06/19 88 ZOSTER VACCINE (1 of 2) 02/07/1988 RSV VACCINE (60+ or ) (1 - 1-dose 75+ series) 2013 INFLUENZA VACCINE (#1) 2023 Insurance MEDICARE PART A AND B [facility] [id number] Care Teams Metalizing Machine Operator Automatic Relationship Specialty Start Date End Date Eli Porras MD [facility] [address] [place] [phone] PCP - General Family Practice 12/07/23
--- OUTSIDE RECORDS SUMMARY | 2024-10-02 09:19 | XMS_ITS | Clinical Summary ---
Author Organization [facility] Address [facility] [place] [address] Care Team Providers Care Chiseler Head Name Role Phone Unavailable Primary Care Provider Unavailabl e Social History Tobacco Use Types Packs/Day Years Used Date Smoking Tobacco: Never Assessed Sex and Gender Information Value Date Recorded Sex Assigned at Not on file Legal Sex Male 4:25 PM CDT Gender Identity Not on file Sexual Orientation Not on file Plan of Treatment Health Maintenance Due Date Last Done Comments DTaP, Tdap and Td Vaccines ( 1 - Tdap) 1959 Pneumococcal Vaccine: 50+ Ye ars (1 of 1 - PCV) 02/07/1988 Zoster Vaccines (1 of 2) 02/07/1988 RSV Immunization or 60+ Years (1 - 1-dose 75+ series) 2013 COVID-19 Vaccine ( - 2023-2 5 season) 2024 Meningococcal B Vaccine Aged Out No l onger eligible based on patient's age to complete this topic Meningococcal Vaccine Aged Out No raphael emanuel eligible based on patient's age to complete this topic RSV Immunizations Under 20 Months Aged Out No longer eligible based on patient's age to complete this topic
[2024-10-02 09:26] LABS: Hematocrit 36.9 % (42.0-52.0); Hemoglobin 12.5 g/dL (14.0-18.0); Mean Corpuscular HGB Conc 33.9 g/dl (32-36); Mean Corpuscular Hemoglobin 32.6 pg (26-34); Mean Corpuscular Volume 96.1 fl (80-100); Mean Platelet Volume 8.5 fl (7.4-10.4); Platelet Count Result 220 k/mm3 (150-375); Red Blood Count 3.84 M/mm3 (4.6-6.20); Red Cell Distribution Width 13.4 % (11.5-14.5); White Blood Count 6.6 K/mm3 (4.5-10.0)
[2024-10-02 09:56] LABS: Anion Gap 6 mmol/L (4-12); Blood Urea Nitrogen 13 mg/dL (9-20); Calcium 9.2 mg/dL (8.4-10.2); Carbon Dioxide 32 mmol/L (22-30); Chloride 101 mmol/L (98-107); Estimated Glomerular Filt Rate > 60; Glucose 103 mg/dL (65-110); Iron 99 ug/dL (49-181); Potassium 4.4 mmol/L (3.4-5.0); Sodium 139 mmol/L (137-145)
[2024-10-02 10:08] LABS: Percent Iron Saturation 35 % (20-50)
[2024-10-02 11:08] LABS: Folic Acid > 20.0 ng/mL (2.76->20)
== END 2024-10-02 09:09 | disposition home or self-care (01) ==
LOC: ANHLAB 09:11
PROVIDERS: PCP Family Medicine; Visit Provider Internal Medicine Hematology & Oncology
DX: D64.9 Anemia, unspecified (principal)
CPT/HCPCS: 36415; 80048; 82607; 82728; 82746; 83540; 83550; 85027

== ENCOUNTER 2024-12-05 08:41 | Outpatient (CLI) | payer MEDICARE, SELFPAY ==
--- OUTSIDE RECORDS SUMMARY | 2024-12-05 08:46 | XMS_ITS | Continuity of Care Document ---
Author Organization [facility] Address [address] [place] [address] [place] [phone] Phone Care Team Providers Care International Project Engineer Name Role Phone Vera OD, Vipul Unavailable [...] Diagnoses Date Provider Providers Copied on Encounter [facility], [address] [place] [address] [address], [place], [place], [id number], tel:[phone] [facility] No Information 0 4-201 0 Vera OD Vipul. [address] [place], [place] [address]ate [place] , [address], [place], [place], [facility], [place]. tel:[phone] Referring Provider: Vipul Elkins, [address] [place], [place] [address]ate [address], [place], [place], [facility]. tel:[phone] [facility], [address] [place] [address] [address], [place], [place], [id number], [place] tel:[phone] [facility] No Information 0 3-201 0 Vera OD Vipul. [address] [place] [address] , [address], [place], [place], [facility], [place]. tel:[phone] Referring Provider: Vipul Elkins, [address] [place], [place] [address]ate [address], [place], [place], [facility]. tel:[phone] Office/outpat ient Visit, Est [facility], [address] [place] [address] [address], [place], [place], [id number], [place] tel:[phone] [facility] No Information 3 0-201 0 Krishjosie Talamantesl. [address] [place] [address] [address], [place], [place], [facility], [place]. tel:[phone] [facility], [id number] [place] [address] [address], [place], [place], [id number], [place] tel:[phone] [facility] No Information 9-201 0 Krishnasamy Yefri. [address] [place] [address] [address], [place], [place], [facility], [place]. tel:[phone] Referring Provider: Yferi mcqueen, [address] [place], [place] [address] [place] [address], [place], [facility]. tel:[phone] [facility], [address], [place], [place], [id number], [place] tel:[phone] [facility] No Information Nov-1 2-200 9 Krishnasamy Yefri. [address] [place] [address], [place], [facility], . tel:[phone] Referring Provider: Yefri mcqueen, [address], [place], [facility]. tel:[phone] [facility], [address], [place], [place], [id number], tel:[phone] [facility] No Information Nov-0 9-200 9 Krishnasamy Yefri. [facility] Corporate Center [facility] [address], [place], [facility], [place]. tel:[phone] Referring Provider: Yefri mcqueen, [facility] [address], [place], [facility]. tel:[phone] Office/outpat ient Visit, [facility], [address] [place] [address] [address], [place], [place], [id number], [place] tel:[phone] [facility] No Information Aug-0 5-200 9 Krishnasamy Yefri. [facility] Corporate [facility] [address], [place], [facility], [place]. tel:[phone] Office/outpat ient Visit, [facility], [id number] [place] [address] [address], [place], [place], [id number], [place] tel:[phone] [facility] No Information Mar-0 4-200 9 Krishnasamy Yefri. [address] [facility] [address], [place], [facility], [place]. tel:[phone] Referring Provider: Yefri mcqueen, [address], [place], [address]. tel:[phone] [facility], [address] [place] [address] [address], [place], [place], [id number], tel:[phone] [facility] No Information Nov-0 5-200 8 Krishnasamy Yefri. [facility] [place] [address], [place], [facility], [place]. tel:[phone] Referring Provider: Yefri mcqueen, [address] [place], [place] [address]ate [address], [place], [facility]. tel:[phone] [facility], [address] [place] [address] [address], [place], [place], [id number], tel:[phone] [facility] No Information Nov-0 4-200 8 Krishnasamy Yefri. [address] [place] [address], [place], [facility], [place]. tel:[phone] Referring Provider: Yefri mcqueen, [address] [place], [place] [address], [place], [facility]. tel:[phone] [facility], [address] [place] [address] [address], [place], [place], [id number], tel:[phone] [facility] No Information Aug-1 2-200 8 Nedra Chase. [address] [place], [place] [address], [address], [place], [facility], [place]. tel:[phone] [facility]pat ient Visit, [facility], [address] [place] [address] [address], [place], [place], [id number], [place] tel:[phone] [facility] No Information Costa-3 0-200 8 Krishnasamy Yefri. [address] [place] [address] [address], [place], [facility], [place]. tel:[phone] Office/outpat ient Visit, [facility], [address] [place] [address] [address], [place], [place], [id number], tel:[phone] [facility] No Information Costa-2 0-200 8 Krishnasamy Yefri. [address] [place], [place] [address], [facility], . tel:[phone] [facility], [address] [place] [address] [address], [place], [place], [id number], tel:[phone] [facility] No Information Apr-0 2-200 8 Krishnasamy Yefri. [address] [place], [place] [address], [facility], [place]. tel:[phone] Referring Provider: Yefri mcqueen, [address] [place] [address], [facility]. tel:[phone] [facility], [address] [place] [address] [address], [place], [place], [id number], tel:[phone] [facility] No Information Apr-0 1-200 8 Krishnasamy Yefri. [address] [place], [place] [address], [facility], [place]. tel:[phone] Referring Provider: Yefri mcqueen, [address] [place], [place] [address], [facility]. tel:[phone] [facility], [address] [place] [address] [address], [place], [place], [id number], tel:[phone] [facility] No Information Mar-1 2-200 8 Krishnasamy Yefri. [address] [place], [place] [address], [facility], [place]. tel:[phone] Family History Family Member Type Diagnosis Age At Onset No Information Payers Payer name Insurance type Covered green party ID Authoriza tion(s) [place] [id number] [facility] Medicare [facility] CI [id number] Social History Type Description Quantity Date Captured [...]
--- OUTSIDE RECORDS SUMMARY | 2024-12-05 08:46 | XMS_ITS | Clinical Summary ---
Author Organization [facility] Address [address] [place] [address] Care Team Providers Care Waterproofing Supervisor Name Role Phone Eli Porras MD Primary [...] daily. Active fluticasone propionate (FLONASE) 50 mcg/spray [place], Suspension nasal inhaler Administer 2 Sprays in each nostril daily. 4 Active Active Problems No known active problems Encounters Date Type Department Care Team Description 11/28/2024 External Device Data [facility] ABSTRACTION Provider, Abstract 11/28/2024 External Device Data [facility]STRACTION Provider, Abstract 11/27/2024 External Device Data [facility]STRA[facility] Provider, Abstract 10/30/2024 External Device Data [facility]STRA[facility] Provider, Abstract 10/09/2024 1:00 PM CDT Office Visit [facility] [address] [place] [address] Andrew Hirsch MD Chronic anemia (Primary Dx) 10/09/2024 External Device Data [facility] ABSTRACTION Provider, Abstract 10/09/2024 External Device Data [facility] ABSTRACTION Provider, Abstract 10/04/2024 Orders Only [facility]cology [facility] H[facility]ology [facility] [address] [place] [address] Andrew Hirsch MD 10/03/2024 External Device Data [facility] ABSTRACTION Provider, Abstract 10/02/2024 External Device Data [facility] ABSTRACTION Provider, Abstract [...] Sex Assigned at Male 04/16/2024 4:25 PM MANAGER PROTEIN Legal Sex Male 11:35 AM CDT Gender Identity Male 04/16/2024 4:25 PM MANAGER PROTEIN Sexual Orientation Straight 04/16/2024 4: 25 PM MANAGER PROTEIN Last Filed Vital Signs Vital Sign Reading Time Taken Comments Blood Pressure 163/86 10/09/2024 1:13 PM CDT Pulse 64 10/09/2024 1:11 PM CDT Temperature 36.9 C (98.5 F) 10/09/2024 1:11 PM CDT Respiratory Rate 15 10/09/2024 1:11 PM CDT Oxygen Saturation 96% 10/09/2024 1:11 PM CDT Inhaled Oxygen Concentration - - Weight 76.6 kg (168 lb 12.8 oz) 10/09/2024 1:11 PM CDT Height 172.7 cm (5' 8) 12/20/2023 1:30 PM CDT Body Mass Index 25.67 12/20/2023 1:30 PM CDT Plan of Treatment Upcoming Encounters Date Type Department Care Team (Late st Contact Info) Description 06/10/2025 1:00 PM MANAGER PROTEIN Office Visit [facility] Oncology and Hematology - [place] [address] [facility] [address] [place] [id number] Andrew Hirsch MD [address] [facility] [address] [place] [address] Health Maintenance Due Date Last Done Comments DTAP/TDAP/TD VACCINES (1 - Tdap) 1959 Traditional Medicare (ACO) Annual Wellness Visit 02/06 PNEUMOCOCCAL VACCINE 50+ YEARS (1 of 1 - PCV) 02/06/19 88 ZOSTER VACCINE (1 of 2) 02/07/1988 RSV VACCINE (60+ or ) (1 - 1-dose 75+ series) 2013 INFLUENZA VACCINE (#1) 2024 Procedures Procedure Name Priority Date/Time Associated Diagnosis Comments BASIC METABOLIC PANEL Routine 10/02/2024 1:42 PM CDT from Last 3 Months Results * BASIC METABOLIC PANEL (10/02/2024 1:42 PM CDT) Blood us Andrew Hirsch MD CHEMISTRY ORDERABLES Final Resu lt from Last 3 Months Insurance MEDICARE PART A AND B [facility] [id number] Care Teams Waterproofing Supervisor Relationship Specialty Start Date End Date Eli Porras MD [address] [facility] [address] [address] PCP - General Family Practice 12/07/23
--- OUTSIDE RECORDS SUMMARY | 2024-12-05 08:46 | XMS_ITS | Clinical Summary ---
Author Organization [facility] Address [facility] [place] [address] Care Team Providers Care Supply Coordinator Name Role Phone Unavailable Primary Care Provider [...]
[2024-12-05 15:29] LABS: Alanine Aminotransferase 16 U/L (6-50); Albumin Level 4.2 g/dL (3.5-5.1); Alkaline Phosphatase 59 U/L (38-126); Anion Gap 6 mmol/L (4-12); Aspartate Amino Transferase 28 U/L (17-59); Bilirubin,Total 0.7 mg/dL (0.2-1.3); Blood Urea Nitrogen 14 mg/dL (9-20); Calcium 9.5 mg/dL (8.4-10.2); Carbon Dioxide 30 mmol/L (22-30); Chloride 99 mmol/L (98-107); Cholesterol 134 mg/dL (0-200); Estimated Glomerular Filt Rate > 60; Glucose 85 mg/dL (65-110); HDL Direct 47 mg/dL; Potassium 4.4 mmol/L (3.4-5.0); Sodium 135 mmol/L (137-145); Total Protein 7.8 g/dL (6.3-8.2); Triglycerides 45 mg/dL (<150)
== END 2024-12-05 08:42 | disposition home or self-care (01) ==
LOC: ANHGOSHLAB 08:41
PROVIDERS: PCP Family Medicine; Visit Provider Family Medicine
DX: E78.2 Mixed hyperlipidemia (principal)
CPT/HCPCS: 36415; 80053; 80061

== ENCOUNTER 2025-01-11 08:25 | Outpatient (CLI) | payer MEDICARE, SELFPAY ==
--- OUTSIDE RECORDS SUMMARY | 2009-12-16 19:00 | XMS_ITS | Continuity of Care Document ---
Author Organization [employer] [facility] Address [address] [place] [address] Reilly [address] [place] [phone] Phone Care Team Providers Care Circuit Board Drafter Name Role Phone Vera OD, Vipul Unavailable Unavailable Procedures Procedure Date Visual Field Examination-Professional Au Visual Field Examination(s) Office/outpatient Visit, Est Optic Nerve Head Eval IPO Reduced 15% Eye Exam & Treatment Refraction Fundus Photography W/ Report Visual Field Examination-Professional No Visual Field Examination(s) Office/outpatient Visit, Est Optic Nerve Head Eval No Script Office/outpatient Visit, Est Optic Nerve Head Eval No Script Corneal Pachymetry Visual Field Examination-Professional No Visual Field Examination(s) Revise Eyelashes Office/outpatient Visit, Est Optic Nerve Head Eval Dilated Retinal Exam W Interpretation Ju Office/outpatient Visit, Est Visual Field Examination-Professional Ap Visual Field Examination-Technical Eye Exam & Treatment Refraction Optic Nerve Head Eval Dilated Retinal Exam W Interpretation Ma Advance Directives Directive Yes / No Effective Date File Name No Information Encounters Encounter Description Practice Location Reason(s) For Visit Diagnoses Date Provider Providers Copied on Encounter [facility], [address] [place] [address] [address], [place], [place], [id number], tel:[phone] [facility] No Information 0 4-201 0 Vera OD Vipul. [address] [place], [place] [address]ate [place] , [address], [place], [place], [facility], [place]. tel:[phone] Referring Provider: Vipul Elkins, [address] [place], [place] [address]ate [address], [place], [place], [facility]. tel:[phone] [facility], [address] [place] [address] [address], [place], [place], [id number], [place] tel:[phone] [facility] No Information 0 3-201 0 Vera OD Vipul. [address] [place] [address] , [address], [place], [place], [facility], [place]. tel:[phone] Referring Provider: Vipul Elkins, [address] [place], [place] [address]ate [address], [place], [facility]. tel:[phone] Office/outpat ient Visit, Est [facility], [address] [place] [address] [address], [place], [place], [id number], [place] tel:[phone] [facility] No Information 3 0-201 0 Krishjosie Talamantesl. [address] [place] [address] [address], [place], [facility], [place]. tel:[phone] [facility], [address] [place] [address] [address], [place], [place], [id number], [place] tel:[phone] [facility] No Information 9-201 0 Krishnasamy Yefri. [address] [place] [address] [address], [place], [facility], [place]. tel:[phone] Referring Provider: Yefri mcqueen, [address] [place], [place] [address]ate [place] [address], [place], [facility]. tel:[phone] [facility], [address], [place], [place], [address], [place] tel:[phone] [facility] No Information Nov-1 2-200 9 Krishnasamy Yefri. [address], [place], [facility], . tel:[phone] Referring Provider: Yefri mcqueen, [address], [place], [facility]. tel:[phone] [facility], [address], [place], [place], [id number], tel:[phone] [facility] No Information Nov-0 9-200 9 Krishnasamy Yefri. [facility] [address], [place], [facility], [place]. tel:[phone] Referring Provider: Yefri mcqueen, [facility], [place], [facility]. tel:[phone] Office/outpat ient Visit, [facility], [address] [place] [address] [address], [place], [place], [address], [place] tel:[phone] [facility] No Information Aug-0 5-200 9 Krishnasamy Yefri. [facility] [address], [place], [facility], [place]. tel:[phone] Office/outpat ient Visit, [facility], [address] [place] [address] [address], [place], [place], [id number], [place] tel:[phone] [facility] No Information Mar-0 4-200 9 Krishnasamy Yefri. [address] [facility] [address], [place], [facility], [place]. tel:[phone] Referring Provider: Yefri mcqueen, [address], [place], [address]. tel:[phone] [facility], [address] [place] [address] [address], [place], [place], [address], tel:[phone] [facility] No Information Nov-0 5-200 8 Krishnasamy Yefri. [facility] [place] [address], [place], [facility], [place]. tel:[phone] Referring Provider: Yefri mcqueen, [address] [place], [place] [address], [place], [facility]. tel:[phone] [facility], [address] [place] [address] [address], [place], [place], [address], tel:[phone] [facility] No Information Nov-0 4-200 8 Krishnasamy Yefri. [address] [place] [address], [place], [facility], [place]. tel:[phone] Referring Provider: Yefri mcqueen, [address] [place], [place] [address]ate [facility], [place], [facility]. tel:[phone] [facility], [address] [place] [address] [address], [place], [place], [address], tel:[phone] [facility] No Information Aug-1 2-200 8 Nedra Chase. [address] [place], [place] [address], [address], [place], [facility], [place]. tel:[phone] [facility]outpat ient [facility], [facility], [address] [place] [address] [address], [place], [place], [address], [place] tel:[phone] [facility] No Information Costa-3 0-200 8 Krishnasamy Yefri. [address] [place] [address] [address], [place], [facility], [place]. tel:[phone] Office/outpat ient Visit, [facility], [address] [place] [address] [address], [place], [place], [address], tel:[phone] [facility] No Information Costa-2 0-200 8 Krishnasamy Yefri. [address] [place], [place] [address], [facility], . tel:[phone] [facility], [address] [place] [address] [address], [place], [place], [address], tel:[phone] [facility] No Information Apr-0 2-200 8 Krishnasamy Yefri. [address] [place], [place] [address]ate [address], [facility], [place]. tel:[phone] Referring Provider: Yefri mcqueen, [address] [place] [address], [facility]. tel:[phone] [facility], [address] [place] [address] [address], [place], [place], [address], tel:[phone] [facility] No Information Apr-0 1-200 8 Krishnasamy Yefri. [address] [place], [place] [address]ate [address], [facility], [place]. tel:[phone] Referring Provider: Yefri mcqueen, [address] [place], [place] [address], [facility]. tel:[phone] [facility], [address] [place] [address] [address], [place], [place], [address], tel:[phone] [facility] No Information Mar-1 2-200 8 Krishnasamy Yefri. [address] [place], [place] [address], [facility], [place]. tel:[phone] Family History Family Member Type Diagnosis Age At Onset No Information Payers Payer name Insurance type Covered green party ID Authoriza tion(s) [place] [id number] [facility] Medicare [facility] CI [id number] Social History Type Description Quantity Date Captured Comments Sex Male Smoking Status No Information Chief Complaint And Reason For Visit No Information Reason For Referral Reason For Referral No Information History Of Present Illness Encounter Date Complaint History Of Prese nt Illness No Information Functional Status Date Functional Assessmen t No Information Instructions Date Instruction Additional Infor mation No Information Assessments Type Assessment Date No Information Patient Care Teams Name Effective Dates (start - stop) Status Members No Information
--- OUTSIDE RECORDS SUMMARY | 2025-01-11 08:28 | XMS_ITS | Clinical Summary ---
Author Organization [facility] [place] Address [address] [place] [address] Care Team Providers Care Office Coordinator Receptionist Name Role Phone Eli Porras MD Primary [...] daily. Active fluticasone propionate (FLONASE) 50 mcg/spray [place], Suspension nasal inhaler Administer 2 Sprays in each nostril daily. 4 Active Active Problems No known active problems Encounters Date Type Department Care Team Description 01/02/2025 External Device Data [facility] ABSTRACTION Provider, Abstract 01/01/2025 External Device Data [facility] ABSTRACTION Provider, Abstract [...] Sex Assigned at Male 04/16/2024 4:25 PM COMPUTER GRAPHICS ILLUSTRATOR Legal Sex Male 11:35 AM CDT Gender Identity Male 04/16/2024 4:25 PM COMPUTER GRAPHICS ILLUSTRATOR Sexual Orientation Straight 04/16/2024 4: 25 PM COMPUTER GRAPHICS ILLUSTRATOR Last Filed Vital Signs Vital Sign Reading [...] st Contact Info) Description 06/10/2025 1:00 PM COMPUTER GRAPHICS ILLUSTRATOR Office Visit [facility] Oncology and Hematology - [place] [address] [place] [address] Andrew Hirsch MD [address] [facility] [address] [place] [address] Health Maintenance Due Date Last Done Comments DTAP/TDAP/TD VACCINES (1 - Tdap) 1959 PNEUMOCOCCAL VACCINE 50+ YEARS (1 of 1 - PCV) 02/06/19 88 ZOSTER VACCINE (1 of 2) 02/07/1988 RSV VACCINE (60+ or ) (1 - 1-dose 75+ series) 2013 INFLUENZA VACCINE (#1) 2024 Insurance MEDICARE PART A AND B [facility] [id number] Care Teams Office Coordinator Receptionist Relationship Specialty Start Date End Date Eli Porras MD [facility] [address] [place] [address] PCP - General Family Practice 12/07/23
[2025-01-11 18:45] LABS: Hemoglobin A1C 5.8 % (<5.7)
[2025-01-11 19:26] LABS: MALB Creatinine Ratio 15.1 mg/g (0-30)
== END 2025-01-11 08:26 | disposition home or self-care (01) ==
LOC: ANHGOSHLAB 08:25
PROVIDERS: PCP Family Medicine; Visit Provider Family Medicine
DX: E11.9 Type 2 diabetes mellitus without complications (principal)
CPT/HCPCS: 36415; 82043; 83036